=== PATIENT | female | born 1975 | race Two or more races ===

== ENCOUNTER 2019-09-15 13:37 | Emergency (ER) | payer BC, MEDICAID ==
[2019-09-15] MEDS ORDERED: MECLIZINE HCL 25 MG TABLET PO ONE (14:45)
[2019-09-15] MEDS ORDERED: ONDANSETRON HCL INJ/PF 4 MG/2 ML SDV IV ONE (14:45)
[2019-09-15] MEDS ORDERED: NORMAL SALINE 1000 ML 1,000 ML IV ONE (14:45)
--- NOTE | 2019-09-15 14:49 | ER Document Report ---
ED General - General Chief Complaint: Vertigo Stated Complaint: LIGHTHEADED,NAUSEA,SKIN SORE Time Seen by Provider: 09/15/19 14:28 Mode of Arrival: Ambulatory Information source: Patient Notes: Patient presents for a check of the hand which she has had for the past 5 days. Patient also reports vertigo symptoms which she has had in the past. Patient reports room is spinning that started off and on since yesterday with some nausea. Patient denies any vomiting, chest pain or shortness of breath. - HPI Onset: Yesterday - Vertigo Onset/Duration: Waxing and waning Quality of pain: No pain Associated symptoms: Nausea. denies: Chest pain, Nonproductive cough, Productive cough, Fever, Headache, Vomiting, Shortness of breath Exacerbated by: Denies Relieved by: Denies Similar symptoms previously: Yes Recently seen / treated by doctor: No - Related Data Allergies/Adverse Reactions: Penicillins Allergy (Verified 09/15/19 14:33) Past Medical History - General Information source: Patient - Social History Smoking Status: Current Every Day Smoker Frequency of alcohol use: None Drug Abuse: None Occupation: None Lives with: Family Family History: Reviewed & Not Pertinent Patient has homicidal ideation: No Neurological Medical History: Reports: Other - Vertigo Endocrine Medical History: Reports: Hx Diabetes Mellitus Type 2 Psychiatric Medical History: Reports: Hx Depression - anxiety/ptsd/panic attacks Past Surgical History: Reports: Hx Cholecystectomy, Hx Hysterectomy Review of Systems - Review of Systems Constitutional: No symptoms reported. denies: Fever, Recent illness EENT: Nose congestion, Sinus pressure Cardiovascular: Dizziness. denies: Chest pain Respiratory: No symptoms reported. denies: Cough, Short of breath Gastrointestinal: Nausea. denies: Abdominal pain, Vomiting Genitourinary: No symptoms reported Female Genitourinary: No symptoms reported Musculoskeletal: No symptoms reported Skin: No symptoms reported Hematologic/Lymphatic: No symptoms reported Neurological/Psychological: No symptoms reported. denies: Confusion, Weakness, Headaches Physical Exam - Vital signs Vitals: Temp Pulse Resp BP Pulse Ox 98.1 F 92 18 123/70 94 09/15/19 13:47 09/15/19 13:47 09/15/19 13:47 09/15/19 13:47 09/15/19 13:47 - General General appearance: Appears well, Alert In distress: None - HEENT Head: Normocephalic, Atraumatic Eyes: Normal Conjunctiva: Normal Extraocular movements intact: Yes - Mild lateral nystagmus Pupils: PERRL Sinus: Normal Nasal: Clear rhinorrhea Mouth/Lips: Normal Mucous membranes: Normal Pharynx: Normal Neck: Normal, Supple. No: Lymphadenopathy, Meningismus - Respiratory Respiratory status: No respiratory distress Chest status: Nontender Breath sounds: Normal. No: Rales, Rhonchi, Stridor, Wheezing Chest palpation: Normal - Cardiovascular Rhythm: Regular Heart sounds: S1 appreciated, S2 appreciated Murmur: No - Back Back: Normal - Extremities General upper extremity: Normal inspection, Normal strength General lower extremity: Normal inspection, Normal strength - Neurological Neuro grossly intact: Yes Cognition: Normal Orientation: AAOx4 Viviane Coma Scale Eye Opening: Spontaneous [place] Coma Scale Verbal: Oriented [place] Coma Scale Motor: Obeys Commands [place] Coma Scale Total: 15 Speech: Normal Cranial nerves: Normal - Psychological Associated symptoms: Normal affect, Normal mood - Skin Skin Temperature: Warm Skin Moisture: Dry Skin Color: Normal Skin irregularity: other - Crusted healing wound to dorsal aspect of left fifth metacarpal, no surrounding erythema., No lymphangitis, patient with full range of motion to hand Irregularity with: negative: Swelling, Warmth Course - Re-evaluation Re-evalutation: 09/15/19 16:27 Patient reports feeling better at this time. Nausea is resolved. Patient without any chest pain or shortness of breath. Patient nontoxic in appearance. Patient without any acute neurologic deficits. Patient presents with symptoms consistent with vertigo. Good return precautions discussed with patient. Patient verbalized understanding and is agreeable with discharge plan of care. - Vital Signs Vital signs: Temp Pulse Resp BP Pulse Ox 98.1 F 92 18 123/70 94 09/15/19 14:34 09/15/19 13:47 09/15/19 13:47 09/15/19 13:47 09/15/19 13:47 - Laboratory Result Diagrams: 09/15/19 15:15 09/15/19 15:15 Laboratory results interpreted by me: 09/15/19 09/15/19 15:15 15:15 Hgb 11.9 L Hct 34.6 L Sodium 136.3 L Anion Gap 4 L BUN 25 H Est GFR ( Amer) 57 L Est GFR (MDRD) Non-Af 47 L Glucose 219 H - EKG Interpretation by Me EKG shows normal: Sinus rhythm Heart block present: 1st Degree When compared to previous EKG there are: Previous EKG unavailable Additional EKG results interpreted by me: 09/15/19 16:28 QTc 436, no acute ischemic changes Discharge - Discharge Clinical Impression: Vertigo, Nausea Open wound, hand Qualifiers: Encounter type: initial encounter Open wound type: unspecified Foreign body presence: without foreign body Laterality: left Qualified Code(s): S61.402A - Unspecified open wound of left hand, initial encounter Condition: Stable Disposition: HOME, SELF-CARE Instructions: Antinausea Medication ([facility]), Bactroban Ointment ([facility]), Meclizine ([facility]), Vertigo ([facility]) Additional Instructions: Return immediately for any new or worsening symptoms Followup with your primary care provider, call tomorrow to make a followup appointment Keep wound covered as it continues to heal Prescriptions: Meclizine HCl [Antivert 25 mg Tablet] 25 mg PO ASDIR PRN #15 tablet PRN Reason: Mupirocin [Bactroban 2% Ointment 22 gm] 1 applic TP TID #22 gm Ondansetron [Zofran Odt 4 mg Tablet] 1 tab PO Q6H #15 tab.[email or web address]
[2019-09-15 15:30] LABS: ABSOLUTE EOSINOPHILS # (AUTO) 0.2 10^3/uL (0.0-0.6); ABSOLUTE LYMPHOCYTES (AUTO) 1.7 10^3/uL (0.5-4.7); ABSOLUTE MONOCYTES (AUTO) 0.4 10^3/uL (0.1-1.4); ABSOLUTE NEUT (AUTO) 3.4 10^3/uL (1.7-8.2); BASOPHILS % (AUTO) 0.5 % (0-2); EOSINOPHILS % (AUTO) 2.7 % (0-6); HEMATOCRIT 34.6 % (36.0-47.0); HEMOGLOBIN 11.9 g/dL (12.0-15.5); LYMPHOCYTES % (AUTO) 29.5 % (13-45); MEAN CORPUSCULAR HEMOGLOBIN 30.6 pg (27.0-33.4); MEAN CORPUSCULAR HGB CONC 34.4 g/dL (32.0-36.0); MEAN CORPUSCULAR VOLUME 89 fl (80-97); MONOCYTES % (AUTO) 7.8 % (3-13); PLATELET COUNT 212 10^3/uL (150-450); RED BLOOD COUNT 3.89 10^6/uL (3.72-5.28); RED CELL DISTRIBUTION WIDTH 13.8 % (11.5-14.0); SEGMENTED NEUTROPHILS % (AUTO) 59.5 % (42-78); TOTAL CELLS COUNTED % (AUTO) 100 %; WHITE BLOOD COUNT 5.7 10^3/uL (4.0-10.5)
[2019-09-15 15:56] LABS: ALBUMIN 3.6 g/dL (3.5-5.0); ALKALINE PHOSPHATASE 90 U/L (38-126); ASPARTATE AMINO TRANSFERASE 23 U/L (14-36); BILIRUBIN,DIRECT 0.1 mg/dL (0.0-0.4); BILIRUBIN,TOTAL 0.3 mg/dL (0.2-1.3); BLOOD UREA NITROGEN 25 mg/dL (7-20); CALCIUM 9.1 mg/dL (8.4-10.2); CARBON DIOXIDE 30 mmol/L (22-30); CHLORIDE 102 mmol/L (98-107); GLUCOSE 219 mg/dL (75-110); POTASSIUM 4.5 mmol/L (3.6-5.0); TOTAL PROTEIN 6.5 g/dL (6.3-8.2)
[2019-09-15 16:12] LABS: ANION GAP 4 (5-19)
[2019-09-15 16:44] VITALS: BP 113/75
--- NOTE | 2019-09-15 21:50 | EKG REPORT ---
SEVERITY:- ABNORMAL ECG - SINUS RHYTHM FIRST DEGREE AV BLOCK : Confirmed by: Shalom Ponce MD 15-Sep-2019 21:49:55
== END 2019-09-15 16:48 | disposition home or self-care (01) ==
LOC: ER 13:37
DX: R42 Dizziness and giddiness (principal); H55.00 Unspecified nystagmus; S61.402A Unspecified open wound of left hand, initial encounter; X58.XXXA Exposure to other specified factors, initial encounter; R11.0 Nausea; R09.81 Nasal congestion; J34.89 Other specified disorders of nose and nasal sinuses; E11.9 Type 2 diabetes mellitus without complications; F17.200 Nicotine dependence, unspecified, uncomplicated; Z88.0 Allergy status to penicillin
CPT/HCPCS: 93005; 99284; 96361; 96374; 36415; 85025; 80053; 93010; J2405; J7030

== ENCOUNTER → 2019-10-12 | Outpatient (CLI) | payer MEDICAID ==
[2019-10-12 09:31] LABS: HEMOGLOBIN 11.6 g/dL (12.0-15.5); MEAN CORPUSCULAR HEMOGLOBIN 30.3 pg (27.0-33.4); MEAN CORPUSCULAR HGB CONC 34.2 g/dL (32.0-36.0); MEAN CORPUSCULAR VOLUME 89 fl (80-97); PLATELET COUNT 266 10^3/uL (150-450); RED BLOOD COUNT 3.84 10^6/uL (3.72-5.28); RED CELL DISTRIBUTION WIDTH 13.9 % (11.5-14.0); WHITE BLOOD COUNT 5.6 10^3/uL (4.0-10.5)
[2019-10-12 09:53] LABS: IRON(TIBC) 53.4 ug/dL (37-170)
== END ==
LOC: OD 08:28
PROVIDERS: ATTEND Family Medicine
DX: D64.9 Anemia, unspecified (principal)
CPT/HCPCS: 36415; 82728; 83540; 83550; 85027

== ENCOUNTER 2020-02-14 21:09 | Emergency (ER) | payer MEDICAID ==
[2020-02-14 21:22] VITALS: BP 148/76
== END 2020-02-14 23:33 | disposition left against medical advice (07) ==
LOC: ER 21:09
DX: Z53.21 Procedure and treatment not carried out due to patient leaving prior to being seen by health care provider (principal)

== ENCOUNTER 2020-02-15 16:17 | Emergency (ER) | payer MEDICAID ==
--- NOTE | 2020-02-15 17:37 | ER Document Report ---
ED Medical Screen (RME) - General Chief Complaint: Puncture Wound to Foot Stated Complaint: FOOT WOUND Time Seen by Provider: 02/15/20 17:25 Primary Care Provider: DARRICK PEREIRA DO [Primary Care Provider] - Follow up as needed - [facility] Notes: Patient is a 44-year-old female with a history of diabetes, CVA x2, and HTN who presents with bilateral lower leg swelling and a wound to her left great toe. Patient was seen at urgent care earlier today and was told to come the ED for concerns of uncontrolled diabetes and cellulitis of her great toe. Patient reports midepigastric pain but denies chest pain and shortness of breath. - Related Data Allergies/Adverse Reactions: Penicillins Allergy (Verified 09/15/19 14:33) Past Medical History - Social History Frequency of alcohol use: None Drug Abuse: None Endocrine Medical History: Reports: Hx Diabetes Mellitus Type 2 Psychiatric Medical History: Reports: Hx Depression - anxiety/ptsd/panic attacks Past Surgical History: Reports: Hx Cholecystectomy, Hx Hysterectomy Physical Exam - Vital signs Vitals: Temp Pulse Resp BP Pulse Ox 98.2 F 76 20 139/78 H 95 02/15/20 16:35 02/15/20 16:35 02/15/20 16:35 02/15/20 16:35 02/15/20 16:35 - Extremities General lower extremity: Edema - pitting bilaterally Foot: Other - necrotic appearing wound to base on left great toe on the plantar surface Course - Re-evaluation Re-evalutation: I have greeted and performed a rapid initial assessment of this patient. A comprehensive ED assessment and evaluation of the patient, analysis of test results and completion of medical decision making process will be conducted by an additional ED providers. - Vital Signs Vital signs: Temp Pulse Resp BP Pulse Ox 98.2 F 76 20 139/78 H 95 02/15/20 16:35 02/15/20 16:35 02/15/20 16:35 02/15/20 16:35 02/15/20 16:35 Doctor's Discharge - Discharge Referrals: DARRICK PEREIRA DO [Primary Care Provider] - Follow up as needed
--- NOTE | 2020-02-15 17:54 | RADIOLOGY REPORT (SQ) ---
EXAM DESCRIPTION: CHEST SINGLE VIEW IMAGES COMPLETED DATE/TIME: 02/15/2020 5:43 pm REASON FOR STUDY: midepigastric pain, leg swelling COMPARISON: None. EXAM PARAMETERS: NUMBER OF VIEWS: One view. TECHNIQUE: Single frontal radiographic view of the chest acquired. RADIATION DOSE: NA LIMITATIONS: None. FINDINGS: LUNGS AND PLEURA: No opacities, masses or pneumothorax. No pleural effusion. MEDIASTINUM AND HILAR STRUCTURES: No masses. Contour normal. HEART AND VASCULAR STRUCTURES: Heart normal in size. Normal vasculature. BONES: No acute findings. HARDWARE: None in the chest. OTHER: No other significant finding. IMPRESSION: NO ACUTE RADIOGRAPHIC FINDING IN THE CHEST. TECHNICAL DOCUMENTATION: JOB ID: [id number] 2010 [employer]- All Rights Reserved Reading location - IP/workstation name: [email or web address]
[2020-02-15 18:03] LABS: ABSOLUTE EOSINOPHILS # (AUTO) 0.2 10^3/uL (0.0-0.6); ABSOLUTE LYMPHOCYTES (AUTO) 1.7 10^3/uL (0.5-4.7); ABSOLUTE MONOCYTES (AUTO) 0.5 10^3/uL (0.1-1.4); ABSOLUTE NEUT (AUTO) 4.1 10^3/uL (1.7-8.2); BASOPHILS % (AUTO) 0.3 % (0-2); HEMOGLOBIN 11.7 g/dL (12.0-15.5); LYMPHOCYTES % (AUTO) 26.3 % (13-45); MEAN CORPUSCULAR HEMOGLOBIN 30.8 pg (27.0-33.4); MEAN CORPUSCULAR HGB CONC 34.5 g/dL (32.0-36.0); MEAN CORPUSCULAR VOLUME 89 fl (80-97); MONOCYTES % (AUTO) 8.2 % (3-13); PLATELET COUNT 209 10^3/uL (150-450); RED BLOOD COUNT 3.82 10^6/uL (3.72-5.28); RED CELL DISTRIBUTION WIDTH 14.4 % (11.5-14.0); SEGMENTED NEUTROPHILS % (AUTO) 62.2 % (42-78); TOTAL CELLS COUNTED % (AUTO) 100 %; WHITE BLOOD COUNT 6.6 10^3/uL (4.0-10.5)
[2020-02-15 18:29] LABS: ALBUMIN 3.6 g/dL (3.5-5.0); ALKALINE PHOSPHATASE 89 U/L (38-126); ANION GAP 6 (5-19); ASPARTATE AMINO TRANSFERASE 15 U/L (14-36); BILIRUBIN,DIRECT 0.2 mg/dL (0.0-0.4); BILIRUBIN,TOTAL 0.3 mg/dL (0.2-1.3); BLOOD UREA NITROGEN 19 mg/dL (7-20); CALCIUM 9.5 mg/dL (8.4-10.2); CARBON DIOXIDE 30 mmol/L (22-30); CHLORIDE 101 mmol/L (98-107); GLUCOSE 285 mg/dL (75-110); POTASSIUM 4.3 mmol/L (3.6-5.0); TOTAL PROTEIN 6.9 g/dL (6.3-8.2)
[2020-02-15 18:41] LABS: NT PRO BNP 353 pg/mL (<125)
[2020-02-15 18:44] LABS: TROPONIN I < 0.012 ng/mL
--- NOTE | 2020-02-15 19:13 | EKG REPORT ---
SEVERITY:- ABNORMAL ECG - SINUS RHYTHM FIRST DEGREE AV BLOCK : Confirmed by: Marcella Norman MD 15-Feb-2020 19:13:00
--- NOTE | 2020-02-15 21:33 | ER Document Report ---
ED General - General Chief Complaint: Wound Infection Stated Complaint: FOOT WOUND Time Seen by Provider: 02/15/20 17:25 Primary Care Provider: DARRICK PEREIRA DO [Primary Care Provider] - Follow up as needed - HPI Notes: 44-year-old female presents with an ulcer to her left toe. Patient states she is unsure how long the ulcer has been there for, states she just noticed it today. She is unsure of any injury that might have occurred. She states that she went to urgent care and was called to come to the emergency department for further evaluation. She states that she had a corn to the same toe which her primary care doctor shaved, she states this was fairly recent and he did not mention anything about an ulcer. She is having some pain to the toe and it radiates up her entire leg and into her groin. She also states that her legs have been swelling, her primary care doctor started her on Lasix for this, she denies a previous history of CHF and has not had an echo. She denies any previous history of blood clots and she is otherwise active during the day. The triage note also mentions epigastric pain, she states she has been having epigastric pain and some nausea ongoing for several months. She has tried Pepto-Bismol and Imodium for the symptoms which have not really changed, she do es not take any antacid medications. - Related Data Allergies/Adverse Reactions: Penicillins Allergy (Verified 09/15/19 14:33) Past Medical History - General Information source: Patient - Social History Smoking Status: Current Every Day Smoker Frequency of alcohol use: None Drug Abuse: None Family History: Reviewed & Not Pertinent Patient has homicidal ideation: No Endocrine Medical History: Reports: Hx Diabetes Mellitus Type 2 Psychiatric Medical History: Reports: Hx Depression - anxiety/ptsd/panic attacks Past Surgical History: Reports: Hx Cholecystectomy, Hx Hysterectomy Review of Systems - Review of Systems Constitutional: denies: Fever EENT: No symptoms reported Cardiovascular: denies: Chest pain Respiratory: denies: Short of breath Gastrointestinal: See HPI Genitourinary: No symptoms reported Female Genitourinary: No symptoms reported Musculoskeletal: See HPI Skin: Dryness Hematologic/Lymphatic: No symptoms reported Neurological/Psychological: No symptoms reported Physical Exam - Vital signs Vitals: Temp Pulse Resp BP Pulse Ox 98.2 F 76 20 139/78 H 95 02/15/20 16:35 02/15/20 16:35 02/15/20 16:35 02/15/20 16:35 02/15/20 16:35 - General General appearance: Appears well, Alert In distress: None - HEENT Head: Normocephalic, Atraumatic Extraocular movements intact: Yes Pupils: PERRL - Respiratory Breath sounds: Normal - Cardiovascular Rhythm: Regular Heart sounds: Normal auscultation Pulses: Normal: Dorsalis pedis Normal capillary refill: Yes - Abdominal Inspection: Obese Bowel sounds: Normal Tenderness: Nontender - Extremities Notes: There is ulceration to the plantar aspect of the left great toe, about 1 cm in depth, there is no bone visible. There is no purulence, crepitance or streaking erythema. There is bilateral edema to her lower extremities, 1+ pitting. She has tenderness to the left calf which appears slightly larger than the right. - Neurological Neuro grossly intact: Yes Cognition: Normal Orientation: AAOx4 Motor strength normal: LUE, RUE, LLE, RLE Sensory: Normal - Psychological Associated symptoms: Normal affect - Skin Skin Temperature: Warm Course - Re-evaluation Re-evalutation: 44-year-old female with ulceration to the plantar aspect of left great toe, patient unsure of cause or duration. On exam there is an ulceration without purulence/erythema. She does have some hyperkeratosis to the left great toe as well. Left foot is warm and well perfused, it is otherwise neurovascularly intact. She does have bilateral 1+ edema to her lower extremities as well for which she is taking Lasix for this. She denies cardiopulmonary complaints. Given that the cause of the ulcer is unknown, will obtain x-ray to assess for any foreign body that may be present. Also obtain ultrasound to rule out DVT. Will start on empiric Bactrim given that she is a diabetic and is at high risk for this wound to progress, she states that she does have a primary care doctor and believes she will be able to have close follow-up this week. In terms of her epigastric pain and nausea, discussed with her potentially is related to reflux and have advised to start daily acid suppressive medication, her abdomen is nontender. Through the triage process she had labs, EKG and chest x-ray done. No leukocytosis or left shift, chronic anemia stable. Electrolytes within normal limits. Creatinine within normal limits. Hyperglycemia however normal bicarb and no anion gap. Troponin is negative. There is a slight elevation of BNP, no previous values available for comparison. EKG is nonischemic and chest x-ray is without consolidation. 02/15/20 23:08 X-ray foot available, no foreign body, there is air out the wound but no surrounding soft tissue air, no evidence of osteomyelitis per radiology 02/15/20 23:15 No DVT per radiology 02/15/20 23:20 Patient was updated on work-up. Advised her to have very close follow-up with her primary care doctor and asked for referral to podiatry or even orthopedic surgery. Also discussed with her potentially doubling Lasix for the next few days to see if this has any effect. Return precautions given, stable at time of discharge. - Vital Signs Vital signs: Temp Pulse Resp BP Pulse Ox 98.2 F 82 18 142/81 H 97 02/15/20 16:35 02/15/20 19:51 02/15/20 19:51 02/15/20 19:51 02/15/20 19:51 - Laboratory Results Result Diagrams: 02/15/20 17:44 02/15/20 17:44 Laboratory Results Interpreted: 02/15/20 02/15/20 02/15/20 17:44 17:44 17:44 Hgb 11.7 L Hct 34.0 L RDW 14.4 H Glucose 285 H NT-Pro-B Natriuret Pep 353 H Critical Laboratory Results Reviewed: No Critical Results - Radiology Results Critical Radiology Results Reviewed: No Critical Results Discharge - Discharge Clinical Impression: Chronic anemia, Edema of both lower extremities Ulcer of toe due to diabetes Qualifiers: Diabetes mellitus type: type 2 Laterality: left Non-pressure ulcer stage: limited to breakdown of skin Qualified Code(s): E11.621 - Type 2 diabetes mellitus with foot ulcer; L97.521 - Non-pressure chronic ulcer of other part of left foot limited to breakdown of skin Hyperglycemia due to type 2 diabetes mellitus Qualifiers: 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 As discussed, you need to have very close follow-up with your primary care doctor, you need to be seen this week. Ask for referral to podiatry or orthopedic surgery, also discuss obtaining echo to evaluate for any signs of CHF. Return to the emergency department for any concerning worsening symptoms. Prescriptions: Sulfamethoxazole/Trimethoprim [Bactrim Ds Tablet] 2 tab PO BID #28 tablet Referrals: DARRICK PEREIRA DO [Primary Care Provider] - Follow up as needed
[2020-02-15] MEDS ORDERED: SULFAMETHOXAZOLE/TRIMETHOPRIM 800-160 MG TABLET PO ONE (21:48)
--- NOTE | 2020-02-15 23:07 | RADIOLOGY REPORT (SQ) ---
EXAM DESCRIPTION: FOOT LEFT 2 VIEWS [facility]: XR FOOT 1-2 VIEWS Views: 2 CLINICAL HISTORY: 44 years Female; wound base of great toe, eval FB or gas; COMPARISON: None. FINDINGS: Negative for acute fracture, dislocation, or radiopaque foreign body. There is soft tissue air plantar and medial to the 1st IP joint, with associated soft tissue swelling. No lytic bone changes. Small plantar and Achilles calcaneal spurs are noted. IMPRESSION: 1. Soft tissue wound of the great toe. There is air at the wound, but no significant surrounding soft tissue air. 2. No radiographic evidence for osteomyelitis.
--- NOTE | 2020-02-15 23:10 | RADIOLOGY REPORT (SQ) ---
EXAM DESCRIPTION: VENOUS UNILATERAL LOWER 02/15/2020 9:45 PM [employer] CLINICAL HISTORY: 44 years Female, L leg swelling, eval DVT; ; COMPARISON: None. FINDINGS: Left common femoral, femoral, popliteal, posterior tibial, greater saphenous, and small saphenous veins demonstrate normal compressibility and phasicity. The right common femoral vein also appears normal. Superficial soft tissues show soft tissue swelling about the left lower leg. As a result, the left peroneal vein was not visualized. IMPRESSION: No definitive evidence of deep venous thrombosis within the left lower extremity. Soft tissue swelling.
[2020-02-15 23:34] VITALS: BP 150/76
== END 2020-02-15 23:34 | disposition home or self-care (01) ==
LOC: ER 16:17
DX: D64.89 Other specified anemias (principal); R60.9 Edema, unspecified; E11.621 Type 2 diabetes mellitus with foot ulcer; L97.521 Non-pressure chronic ulcer of other part of left foot limited to breakdown of skin; E11.65 Type 2 diabetes mellitus with hyperglycemia; F17.200 Nicotine dependence, unspecified, uncomplicated; Z90.49 Acquired absence of other specified parts of digestive tract; Z90.710 Acquired absence of both cervix and uterus
CPT/HCPCS: 93005; 99285; 36415; 83690; 85025; 80053; 84484; 83880; 93971; 71045; 73620; 93010; J3490

== ENCOUNTER 2020-02-18 16:31 | Emergency (ER) | payer MEDICAID ==
[2020-02-18 16:39] VITALS: BP 147/72
== END 2020-02-18 17:06 | disposition left against medical advice (07) ==
LOC: ER 16:31
DX: Z53.21 Procedure and treatment not carried out due to patient leaving prior to being seen by health care provider (principal)

== ENCOUNTER 2020-02-18 23:46 | Inpatient (IN) | payer MEDICAID ==
[2020-02-19] MEDS ORDERED: VANCOMYCIN HCL INJ 1000 MG VIAL IV ONE (01:24)
--- NOTE | 2020-02-19 01:25 | ER Document Report ---
ED Medical Screen (RME) - General Stated Complaint: LEFT FOOT DIABETIC ULCER Time Seen by Provider: 02/19/20 01:17 Primary Care Provider: DARRICK PEREIRA DO [Primary Care Provider] - Follow up as needed Notes: Patient is a 44-year-old female who presents to the emergency department with a chief complaint of left foot/great toe pain. Patient noticed that she was having increased pain on Saturday. Patient was referred to podiatry, which they r ecommended IV antibiotics. Patient was here yesterday in the emergency department, but left due to the wait and the amount of people that were in the emergency department. Family reports that the patient always has chills. Denies any fevers that they know of. Exam: Tenderness noted to left foot, especially at left great toe. Erythema noted to left lower extremity. I have greeted and performed a rapid initial assessment of this patient. A comprehensive ED assessment and evaluation of the patient, analysis of test results and completion of medical decision making process will be conducted by an additional ED providers. - Related Data Allergies/Adverse Reactions: Penicillins Allergy (Verified 09/15/19 14:33) steroids Allergy (Uncoded 02/19/20 01:21) Past Medical History Endocrine Medical History: Reports: Hx Diabetes Mellitus Type 2 Psychiatric Medical History: Reports: Hx Depression - anxiety/ptsd/panic attacks Past Surgical History: Reports: Hx Cholecystectomy, Hx Hysterectomy Physical Exam - Vital signs Vitals: Temp Pulse Resp BP Pulse Ox 97.9 F 85 18 96/60 L 94 02/19/20 00:52 02/19/20 00:52 02/19/20 00:52 02/19/20 00:52 02/19/20 00:52 Course - Vital Signs Vital signs: Temp Pulse Resp BP Pulse Ox 97.9 F 85 18 96/60 L 94 02/19/20 00:52 02/19/20 00:52 02/19/20 00:52 02/19/20 00:52 02/19/20 00:52 Doctor's Discharge - Discharge Referrals: DARRICK PEREIRA DO [Primary Care Provider] - Follow up as needed
[2020-02-19 02:18] LABS: ABSOLUTE EOSINOPHILS # (AUTO) 0.2 10^3/uL (0.0-0.6); ABSOLUTE LYMPHOCYTES (AUTO) 1.6 10^3/uL (0.5-4.7); ABSOLUTE MONOCYTES (AUTO) 0.6 10^3/uL (0.1-1.4); ABSOLUTE NEUT (AUTO) 3.6 10^3/uL (1.7-8.2); BASOPHILS % (AUTO) 0.5 % (0-2); EOSINOPHILS % (AUTO) 3.6 % (0-6); HEMATOCRIT 34.8 % (36.0-47.0); HEMOGLOBIN 11.8 g/dL (12.0-15.5); LYMPHOCYTES % (AUTO) 26.5 % (13-45); MEAN CORPUSCULAR HEMOGLOBIN 29.9 pg (27.0-33.4); MEAN CORPUSCULAR VOLUME 88 fl (80-97); MONOCYTES % (AUTO) 9.2 % (3-13); PLATELET COUNT 250 10^3/uL (150-450); RED BLOOD COUNT 3.96 10^6/uL (3.72-5.28); RED CELL DISTRIBUTION WIDTH 14.4 % (11.5-14.0); SEGMENTED NEUTROPHILS % (AUTO) 60.2 % (42-78); TOTAL CELLS COUNTED % (AUTO) 100 %
[2020-02-19 02:41] LABS: ALBUMIN 3.5 g/dL (3.5-5.0); ALKALINE PHOSPHATASE 86 U/L (38-126); ANION GAP 7 (5-19); ASPARTATE AMINO TRANSFERASE 15 U/L (14-36); BILIRUBIN,DIRECT 0.2 mg/dL (0.0-0.4); BILIRUBIN,TOTAL 0.4 mg/dL (0.2-1.3); BLOOD UREA NITROGEN 25 mg/dL (7-20); CALCIUM 9.5 mg/dL (8.4-10.2); CARBON DIOXIDE 33 mmol/L (22-30); CHLORIDE 102 mmol/L (98-107); GLUCOSE 118 mg/dL (75-110); POTASSIUM 4.6 mmol/L (3.6-5.0); TOTAL PROTEIN 6.6 g/dL (6.3-8.2)
--- NOTE | 2020-02-19 02:45 | RADIOLOGY REPORT (SQ) ---
Left foot x-ray three views on 02/19/2020 at 2:12 AM Clinical indications: Diabetic ulcer plantar aspect of first toe COMPARISON: 02/15/2020 FINDINGS: Soft tissue wound is noted in the plantar aspect of the distal first toe similar to the previous exam. There is no radiopaque foreign body. A tiny plantar calcaneal spur is noted. There are no fractures. Visualized joints are well aligned. No definite plain radiographic evidence of osteomyelitis is noted. IMPRESSION: No acute bony abnormality.
[2020-02-19] MEDS ORDERED: HYDROCODONE/ACETAMINOPHEN 5-325 MG TABLET PO ONE (04:00)
[2020-02-19] MEDS ORDERED: CLINDAMYCIN 300 MG/D5W RTU 300 MG/50 ML RTUPB IV ONE (04:00)
--- NOTE | 2020-02-19 04:39 | ER Document Report ---
ED General - General Chief Complaint: Skin Sore(s) Stated Complaint: LEFT FOOT DIABETIC ULCER Time Seen by Provider: 02/19/20 01:17 Primary Care Provider: DARRICK PEREIRA DO [Primary Care Provider] - Follow up as needed Notes: Patient is a 44-year-old female with a history of diabetes who presents emergency department with a diabetic foot ulcer to her left great toe. In mid January, she saw the barrel raiser helper, Dr. Maria. She ended up having a callus on her foot prescription. Since then, the area has not healed well. Patient has been on Bactrim for the past few days. Family states that she has chills all the time. Denies any actual fever that they know of. - Related Data Allergies/Adverse Reactions: Penicillins Allergy (Verified 09/15/19 14:33) steroids Allergy (Uncoded 02/19/20 01:21) Past Medical History - Social History Smoking Status: Never Smoker Family History: Reviewed & Not Pertinent Endocrine Medical History: Reports: Hx Diabetes Mellitus Type 2 Psychiatric Medical History: Reports: Hx Depression - anxiety/ptsd/panic attacks Past Surgical History: Reports: Hx Cholecystectomy, Hx Hysterectomy Review of Systems - Review of Systems Notes: REVIEW OF SYSTEMS: CONSTITUTIONAL : Denies recent illness. Denies recent unintentional weight loss. See HPI. EENT: Denies eye, ear, throat, or mouth pain, discharge, or symptoms. Denies nasal or sinus congestion. CARDIOVASCULAR: Denies chest pain. RESPIRATORY: Denies shortness of breath, cough, congestion, difficulty breathing, or wheezing. GASTROINTESTINAL: Denies nausea, vomiting, and diarrhea. Denies abdominal pain. Denies constipation. GENITOURINARY: Denies difficulty urinating, burning, blood in urine, urgency or frequency. MUSCULOSKELETAL: Denies neck and back pain. See HPI. SKIN: See HPI. HEMATOLOGIC : Denies easy bruising or bleeding. LYMPHATIC: Denies swollen, painful, enlarged glands. NEUROLOGICAL: Denies no numbness or tingling denies weakness. Denies headache. Denies altered mental status. Denies alteration in speech. PSYCHIATRIC: Denies stress, anxiety, alteration in sleep patterns, or depression. All other systems reviewed and negative. Physical Exam - Vital signs Vitals: Temp Pulse Resp BP Pulse Ox 97.9 F 85 18 96/60 L 94 02/19/20 00:52 02/19/20 00:52 02/19/20 00:52 02/19/20 00:52 02/19/20 00:52 - Notes Notes: PHYSICAL EXAMINATION: GENERAL: Appears well, healthy, well-nourished, no acute distress. HEAD: Normocephalic, atraumatic. EYES: PERRL, conjunctiva normal, all extraocular movements intact, sclera nonicteric ENT: Moist mucous membranes. NECK: Supple, no noticeable swelling, redness, rash. Normal range of motion. LUNGS: Equal breath sounds bilaterally and clear to auscultation. No wheezes rales or rhonchi. CARDIOVASCULAR: S1-S2, regular rate, regular rhythm. Radial pulses 2+, normal. ABDOMEN: Normoactive bowel sounds. Soft, nontender, no guarding, no rebound tenderness, and no masses palpated. EXTREMITIES: Normal strength and range of motion, no pitting or edema. No cyanosis. NEUROLOGICAL: Moves all extremities upon command. Strength 5/5 in all extremities. PSYCH: Normal mood, normal affect. SKIN: Warm, dry. Erythema noted to left lower extremity. Diabetic toe ulcer noted to plantar section of left great toe. Course - Re-evaluation Re-evalutation: 02/19/20 04:42 Hematology is unremarkable. Chemistries are also unremarkable. Lactic acid is negative. LFTs are normal. Foot x-ray does not show osteomyelitis. Patient still does have some cellulitis. I gave her some clindamycin. Due to the patient failing outpatient therapy, will call the hospitalist for admission. Spoke with Dr. Zapata. He will evaluate the patient. 02/19/20 06:27 Dr. Zapata has evaluated patient. Patient will be admitted to hospitalist service. - Vital Signs Vital signs: Temp Pulse Resp BP Pulse Ox 97.9 F 85 18 129/60 H 94 02/19/20 00:52 02/19/20 00:52 02/19/20 00:52 02/19/20 05:03 02/19/20 00:52 - Laboratory Results Result Diagrams: 02/19/20 01:59 02/19/20 01:59 Laboratory Results Interpreted: 02/19/20 02/19/20 01:59 01:59 Hgb 11.8 L Hct 34.8 L RDW 14.4 H Carbon Dioxide 33 H BUN 25 H Est GFR (MDRD) Non-Af 56 L Glucose 118 H Critical Laboratory Results Reviewed: No Critical Results - Radiology Results Critical Radiology Results Reviewed: No Critical Results Discharge - Discharge Clinical Impression: Edema of both lower extremities Ulcer of toe due to diabetes Qualifiers: Diabetes mellitus type: type 2 Laterality: left Non-pressure ulcer stage: with other severity Qualified Code(s): E11.621 - Type 2 diabetes mellitus with foot ulcer; L97.528 - Non-pressure chronic ulcer of other part of left foot with other specified severity Cellulitis Qualifiers: Site of cellulitis: extremity Site of cellulitis of extremity: lower extremity Laterality: left Qualified Code(s): L03.116 - Cellulitis of left lower limb Condition: Stable Disposition: ADMITTED INPATIENT Admitting Provider: Jodi Unit Admitted: Medical Floor Referrals: DARRICK PEREIRA DO [Primary Care Provider] - Follow up as needed
[2020-02-19] MEDS ORDERED: ONDANSETRON HCL INJ/PF 4 MG/2 ML SDV IV PRN (06:27)
[2020-02-19] MEDS ORDERED: ACETAMINOPHEN 325 MG TABLET PO PRN (06:27)
[2020-02-19] MEDS ORDERED: VANCOMYCIN HCL 0 MG in DEXTROSE 5%-WATER 250 ML IV NR (06:45)
--- NOTE | 2020-02-19 06:51 | PDOC H&P ---
History of Present Illness Admission Date/PCP: DARRICK PEREIRA DO Patient complains of: left lower extremity wound and ulcer History of Present Illness: MEAGAN FLORES is a 44 year old female with a history of type 2 diabetes, PTSD and depression who presents with duration of worsening of left big toe pain and wound. Patient reports that she was seen by liability analyst on 01/19 and corn was removed and she stated that it was painless at the time of procedure and in the period immediately following that. The past week she developed worsening pain and about a week ago she started having swelling and erythema surrounding the ulcer site. Was seen at the ED 4 days back for a similar reason and she was discharged on Bactrim. She states that she has been compliant with the medication but the wound and redness continued to get worse. She was evaluated by podiatry a day ago and recommended IV antibiotics and she was referred to the ED for further assessment. She denies any fever, chills, nausea, vomiting. Past Medical History Endocrine Medical History: Reports: Diabetes Mellitus Type 2 Psychiatric Medical History: Reports: Depression - anxiety/ptsd/panic attacks Past Surgical History Past Surgical History: Reports: Cholecystectomy, Hysterectomy Social History Information Source: Patient Lives with: Family Smoking Status: Current Every Day Smoker Hx Recreational Drug Use: No Drugs: None - Advance Directive Resuscitation Status: Full Code Family History Family History: Reviewed & Not Pertinent Parental Family History Reviewed: Yes Children Family History Reviewed: Yes Sibling(s) Family History Reviewed.: Yes Medication/Allergy Home Medications: Meclizine HCl [Antivert 25 mg Tablet] 25 mg PO ASDIR PRN #15 tablet 09/15/19 Mupirocin [Bactroban 2% Ointment 22 gm] 1 applic TP TID #22 gm 09/15/19 Ondansetron [Zofran Odt 4 mg Tablet] 1 tab PO Q6H #15 tab.rapdis 09/15/19 Sulfamethoxazole/Trimethoprim [Bactrim Ds Tablet] 2 tab PO BID #28 tablet 02/15/20 Allergies/Adverse Reactions: Penicillins Allergy (Verified 09/15/19 14:33) steroids Allergy (Uncoded 02/19/20 01:21) Review of Systems Constitutional: ABSENT: chills, fever(s), headache(s), weight gain, weight loss Eyes: ABSENT: visual disturbances Ears: ABSENT: hearing changes Cardiovascular: ABSENT: chest pain, dyspnea on exertion, edema, orthropnea, palpitations Respiratory: ABSENT: cough, hemoptysis Gastrointestinal: ABSENT: abdominal pain, constipation, diarrhea, hematemesis, hematochezia, nausea, vomiting Genitourinary: ABSENT: dysuria, hematuria Musculoskeletal: ABSENT: joint swelling Integumentary: PRESENT: as per HPI. ABSENT: rash Neurological: ABSENT: abnormal gait, abnormal speech, confusion, dizziness, focal weakness, syncope Psychiatric: ABSENT: anxiety, depression, homidical ideation, suicidal ideation Endocrine: ABSENT: cold intolerance, heat intolerance, polydipsia, polyuria Physical Exam Vital Signs: Temp Pulse Resp BP Pulse Ox 97.9 F 85 18 129/60 H 94 02/19/20 00:52 02/19/20 00:52 02/19/20 00:52 02/19/20 05:03 02/19/20 00:52 Intake & Output 02/17/20 02/18/20 02/19/20 06:59 06:59 06:59 Intake Total 50 Balance 50 Weight 147.418 kg Additional comments: GENERAL APPEARANCE: Alert and oriented x3, in no acute distress HEENT: Normocephalic and atraumatic. No scleral icterus. Moist oral mucosa NECK: Supple. No lymphadenopathy or tenderness. No carotid bruit. No JVD CHEST: Symmetric. Nontender to palpation. LUNGS: Clear with good air entry bilaterally. No wheezing or crackles HEART: Regular rate and rhythm with normal S1 and S2. No murmurs, gallops, or rubs. ABDOMEN: Flat, soft, active bowel sounds, no direct or rebound tenderness. No organomegaly detected. No CVA tenderness EXTREMITIES: There is 1 x 1 cm deep ulcer on the left foot at the plantar side of the big toe. There is surrounding erythema, swelling and differential warmth with associated tenderness. Dorsalis pedis pulses +2 bilaterally MUSCULOSKELETAL: No deformity, atrophy or swelling noted PSYCHIATRIC: Recent and remote memory is intact. Appropriate mood and affect. SKIN: Warm, dry, and well perfused. No lesions or rashes are noted. NEUROLOGIC: No focal sensory or motor deficits are noted. Results Laboratory Results: 02/19/20 01:59 02/19/20 01:59 02/19/20 02/19/20 02/19/20 01:59 01:59 01:59 WBC 6.0 RBC 3.96 Hgb 11.8 L Hct 34.8 L MCV 88 MCH 29.9 MCHC 34.0 RDW 14.4 H Plt Count 250 Seg Neutrophils % 60.2 Sodium 142.0 Potassium 4.6 Chloride 102 Carbon Dioxide 33 H Anion Gap 7 BUN 25 H Creatinine 1.05 Est GFR ( Amer) > 60 Glucose 118 H Lactic Acid 1.2 Calcium 9.5 Total Bilirubin 0.4 AST 15 Alkaline Phosphatase 86 Total Protein 6.6 Albumin 3.5 Impressions: Foot X-Ray 02/19/20 01:22 IMPRESSION: No acute bony abnormality. Assessment and Plan - Diagnosis (1) Ulcer of toe due to diabetes Qualifiers: Diabetes mellitus type: type 2 Laterality: left Non-pressure ulcer stage: with other severity Qualified Code(s): E11.621 - Type 2 diabetes mellitus with foot ulcer; L97.528 - Non-pressure chronic ulcer of other part of left foot with other specified severity Is this a current diagnosis for this admission?: Yes Plan: Presents with a nonhealing ulcer on the left big toe Failed outpatient treatment with Bactrim Has no signs of systemic toxicity WBC count within the normal limits X-ray showed no sign of bony involvement Obtain ESR and C-reactive protein Wound consult for possible debridement Consider obtaining MRI follow-up hospital Started on vancomycin and cefepime (2) Cellulitis Qualifiers: Site of cellulitis: extremity Site of cellulitis of extremity: lower extremity Laterality: left Qualified Code(s): L03.116 - Cellulitis of left lower limb Is this a current diagnosis for this admission?: Yes Plan: Presents with foot ulcer with surrounding erythema, swelling and tenderness Has no systemic signs of toxicity Failed outpatient treatment Continue vancomycin and cefepime Follow-up with blood culture Consider wound debridement (3) Hyperglycemia due to type 2 diabetes mellitus Qualifiers: Diabetes mellitus terminal gauger supervisor insulin use: without fci use Qualified Code(s): E11.65 - Type 2 diabetes mellitus with hyperglycemia Is this a current diagnosis for this admission?: Yes Plan: We will place her on insulin, with sliding scale, hypoglycemia protocol and Accu-Cheks (4) Depression Is this a current diagnosis for this admission?: Yes Plan: Currently denies any suicidal of homicidal ideation Continue home medication (5) PTSD (post-traumatic stress disorder) Is this a current diagnosis for this admission?: Yes Plan: Continue prazosin (6) Morbid obesity with BMI of 45.0-49.9, adult Is this a current diagnosis for this admission?: Yes Plan: Encourage regular exercise and dietary modification (7) Tobacco dependence Is this a current diagnosis for this admission?: Yes Plan: Currently patient smokes 1 pack/day Counseling provided to cut down or quit smoking provide nicotine patch while inpatient - Time Time Spent with patient: 35 or more minutes Total Critical Time (Minutes): 45 Smoking Cessation Education: 3 to 10 minutes Medications reviewed and adjusted accordingly: Yes Anticipated Discharge Disposition: Home, Self Care Anticipated Discharge Timeframe: within 48 hours - Inpatient Certification Based on my medical assessment, after consideration of the patient's jorge rbidities, presenting symptoms, or acuity I expect that the services needed warrant INPATIENT care.: Yes I certify that my determination is in accordance with my understanding of Medicare's requirements for reasonable and necessary INPATIENT services [42 CFR 412.3e].: Yes Medical Necessity: Failure to Improve With Outpatient Therapy, Need Close Monitoring Due to Risk of Patient Decompensation, Need for IV Antibiotics Post Hospital Care: D/C or Transfer Summary
[2020-02-19] MEDS ORDERED: CEFEPIME 2 GM/D5W RTU 2 GM/50 ML RTUPB IV SCH (07:00)
[2020-02-19] MEDS ORDERED: DEXTROSE 50%-WATER 25 GM/50 ML DISP.SYRIN IV PRN ×2 (08:25)
[2020-02-19] MEDS ORDERED: DEXTROSE 40% GEL 15 GM TUBE PO PRN ×2 (08:25)
[2020-02-19] MEDS ORDERED: GLUCAGON,HUMAN RECOMB 1 MG INJ IM PRN (08:25)
[2020-02-19] MEDS: OXYCODONE-ACETAMINOPHEN 5-325 MG TABLET PO PRN ×3 (08:58→22:52)
[2020-02-19] MEDS ORDERED: ENOXAPARIN SODIUM INJ 40 MG/0.4 ML DISP.SYRIN SUBCUT SCH (10:00)
[2020-02-19] MEDS: FAMOTIDINE 20 MG TABLET PO SCH ×2 (11:20→22:32)
[2020-02-19] MEDS: VANCOMYCIN HCL 1,500 MG in DEXTROSE 5%-WATER 250 ML IV SCH ×2 (11:20→22:31)
[2020-02-19] MEDS: INSULIN REG, HUMAN 100 UNIT/ML 3 ML VIAL (PYX) SUBCUT SCH ×3 (12:11→22:32)
[2020-02-19] MEDS ORDERED: LIDOCAINE 1% INJ (10 MG/ML) 10 ML MDV INJ PRN (13:15)
[2020-02-19] MEDS: NICOTINE 14 MG/24 HR PATCH.TD24 TD PRN (16:26)
[2020-02-19] MEDS: HUM INSULIN NPH/REG INSULIN HM 100 UNIT/1 ML 3 ML SUBCUT SCH (16:27)
--- NOTE | 2020-02-19 16:32 | PDOC CONSULTATION ---
Consultation Consult Date: 02/19/20 Attending physician:: NORA AMATO Provider Consulted: ADELFO ELKINS Consult reason:: Infected left great toe History of Present Illness Admission Date/PCP: 02/19/20 11:49 DARRICK PEREIRA DO History of Present Illness: MEAGAN FLORES is a 44 year old female Presents to the emergency department with a swollen, painful, draining left great toe. Patient has had the symptoms for over a month. She has been managed by a shipyard painter on an outpatient basis with oral antibiotics, debridement. Patient admitted for IV antibiotics, surgery consulted. X-ray of the foot revealed no gas or evidence of osteomyelitis. Patient is a diabetic, smoker, morbidly obese, and has an insensate foot. Past Medical History Past Medical History: Diabetes, hypertension, obesity, smoking abuse, depression Endocrine Medical History: Reports: Diabetes Mellitus Type 2 Psychiatric Medical History: Reports: Depression - anxiety/ptsd/panic attacks Past Surgical History Past Surgical History: Reports: Cholecystectomy, Hysterectomy Social History Information Source: Patient Lives with: Family Smoking Status: Current Every Day Smoker Hx Recreational Drug Use: No Drugs: None - Advance Directive Resuscitation Status: Full Code Family History Family History: None, Reviewed & Not Pertinent Parental Family History Reviewed: No Children Family History Reviewed: No Sibling(s) Family History Reviewed.: No Medication/Allergy Home Medications: Baclofen [Baclofen 10 mg Tablet] 5 mg PO BID 02/19/20 Buspirone HCl 30 mg PO BID 02/19/20 Diphenhydramine HCl [Allergy Relief] 50 mg PO DAILYP PRN 02/19/20 Divalproex Sodium [Depakote ER 500 mg Tab.sr] 1,500 mg PO QHS 02/19/20 Donepezil HCl 10 mg PO BID 02/19/20 Doxepin HCl [Sinequan 25 Mg Capsule] 100 mg PO QHS 02/19/20 Furosemide [Lasix 40 mg Tablet] 40 mg PO DAILY 02/19/20 Gabapentin [Neurontin 400 mg Capsule] 800 mg PO BID 02/19/20 Glipizide [Glocotrol 10 Mg Tablet] 20 mg PO DAILY 02/19/20 Ibuprofen [Ibu] 800 mg PO TID 02/19/20 Ibuprofen/Diphenhydramine HCl [Advil Pm Liqui-Gels] 1 each PO HSP PRN 02/19/20 Insulin Aspart Prot/Insuln Asp [Novolog Mix 70-30 Flexpen Syrn] 32 unit SQ BID 02/19/20 Loperamide HCl [Anti-Diarrheal] 2 mg PO DAILYP PRN 02/19/20 Metformin HCl 2,000 mg PO DAILY 02/19/20 Pravastatin Sodium 10 mg PO BID 02/19/20 Prazosin HCl 4 mg PO QHS 02/19/20 Propranolol HCl [Inderal Xl] 80 mg PO DAILY 02/19/20 Allergies/Adverse Reactions: Penicillins Allergy (Verified 09/15/19 14:33) steroids Allergy (Uncoded 02/19/20 01:21) Review of Systems Constitutional: PRESENT: as per HPI Eyes: ABSENT: visual disturbances Ears: ABSENT: hearing changes Gastrointestinal: PRESENT: bloating Integumentary: PRESENT: other - Insensate feet Neurological: PRESENT: numbness, paresthesias, restless legs, other Physical Exam Vital Signs: Temp Pulse Resp BP Pulse Ox 97.3 F 81 20 128/60 H 93 02/19/20 15:33 02/19/20 15:33 02/19/20 15:33 02/19/20 15:33 02/19/20 15:33 Intake & Output 02/18/20 02/19/20 02/20/20 06:59 06:59 06:59 Intake Total 50 Balance 50 Weight 147.418 kg 149 kg General appearance: PRESENT: obese Head exam: PRESENT: normocephalic Eye exam: PRESENT: EOMI Mouth exam: PRESENT: dry mucosa Neck exam: PRESENT: full ROM Respiratory exam: PRESENT: clear to auscultation tamra Cardiovascular exam: PRESENT: RRR Pulses: PRESENT: normal carotid pulses, normal radial pulses, normal dorsalis pedis pul, other - Unable to palpate posterior tibial pulses GI/Abdominal exam: PRESENT: soft Rectal exam: PRESENT: deferred Extremities exam: PRESENT: full ROM, other - Moderate edema bilaterally. Ulcer, central aspect, with hypertrophic callus plantar aspect left great toe, moderate erythema webspace and forefoot Musculoskeletal exam: PRESENT: full ROM Neurological exam: PRESENT: oriented to person, oriented to place, oriented to time, oriented to situation Psychiatric exam: PRESENT: appropriate affect Skin exam: PRESENT: dry Results Laboratory Results: 02/19/20 01:59 02/19/20 01:59 12/02/19/20 02/19/20 01:59 01:59 01:59 WBC 6.0 RBC 3.96 Hgb 11.8 L Hct 34.8 L MCV 88 MCH 29.9 MCHC 34.0 RDW 14.4 H Plt Count 250 Seg Neutrophils % 60.2 Sodium 142.0 Potassium 4.6 Chloride 102 Carbon Dioxide 33 H Anion Gap 7 BUN 25 H Creatinine 1.05 Est GFR ( Amer) > 60 Glucose 118 H Lactic Acid 1.2 Calcium 9.5 Total Bilirubin 0.4 AST 15 Alkaline Phosphatase 86 C-Reactive Protein Total Protein 6.6 Albumin 3.5 02/19/20 01:59 WBC RBC Hgb Hct MCV MCH MCHC RDW Plt Count Seg Neutrophils % Sodium Potassium Chloride Carbon Dioxide Anion Gap BUN Creatinine Est GFR ( Amer) Glucose Lactic Acid Calcium Total Bilirubin AST Alkaline Phosphatase C-Reactive Protein 41.3 H Total Protein Albumin Impressions: Foot X-Ray 02/19/20 01:22 IMPRESSION: No acute bony abnormality. Assessment & Plan - Diagnosis (1) Ulcer of toe due to diabetes Qualifiers: Diabetes mellitus type: type 2 Laterality: left Non-pressure ulcer stage: with other severity Qualified Code(s): E11.621 - Type 2 diabetes mellitus with foot ulcer; L97.528 - Non-pressure chronic ulcer of other part of left foot with other specified severity Is this a current diagnosis for this admission?: Yes Plan: Impression: Classic diabetic foot ulcer involving the plantar aspect of the left great toe, suspect involving tissue, high suspicion for osteomyelitis, with cellulitis involving the distal forefoot Recommendations: 1. We will debride left great toe at bedside, obtain deep wound cultures. 2. Post debridement, wound vacs into the deep soft tissue of the foot, patient, and highly suspicious for osteomyelitis of the left great toe distal phalanx. Seriously doubt this toe will survive long-term given patient's multiple risk factors including diabetes mellitus, smoking history, peripheral neuropathy. Patient disinterested in left great toe amputation at this time. 3. Discussed above with primary care team. Will initiate dressing changes and follow patient with you. (2) Edema of both lower extremities Is this a current diagnosis for this admission?: Yes Plan: Chronic lymphedema of the lower extremities without ulceration (3) Cellulitis Qualifiers: Site of cellulitis: extremity Site of cellulitis of extremity: lower extremity Laterality: left Qualified Code(s): L03.116 - Cellulitis of left lower limb Is this a current diagnosis for this admission?: Yes (4) Morbid obesity with BMI of 45.0-49.9, adult Is this a current diagnosis for this admission?: Yes (5) PTSD (post-traumatic stress disorder) Is this a current diagnosis for this admission?: Yes (6) Tobacco dependence Is this a current diagnosis for this admission?: Yes
--- NOTE | 2020-02-19 16:36 | Operative Report ---
Operative Report DATE OF SURGERY: 02/19/20 PREOPERATIVE DIAGNOSIS: 1. Diabetic foot ulcer involving the left great toe pl fred aspect. 2. Smoking abuse. 3. Obesity POSTOPERATIVE DIAGNOSIS: Same with involvement of deep soft tissue, tendon; suspicious for osteomyelitis OPERATION: Excisional debridement of left great toe plantar aspect skin, subcutaneous tissue, fascia with wound culture SURGEON: ADELFO ELKINS ANESTHESIA: Local TISSUE REMOVED OR ALTERED: Skin, subcutaneous tissue fascia COMPLICATIONS: None ESTIMATED BLOOD LOSS: 15 cc INTRAOPERATIVE FINDINGS: See below PROCEDURE: Patient was seen in the patient's room, left foot prepped and draped in sterile fashion with Betadine. Surgical plan surgical timeout were conducted. The plantar surface of the left great toe at the site of the diabetic foot ulcer was anesthetized 1% plain lidocaine. All hypertrophic skin and callus excised with a #10 blade. Underlying subcutaneous tissue and fibrous excisionally debrided with scissors. The wound tracked proximally towards the base of the of the toe, as well as proximal bone. No counterincisions were made. Deep wound culture sent for Gram stain, culture and sensitivity. Wound irrigated with peroxide, then packed open with gauze, dry gauze applied and a Kerlix wrap applied. Patient tolerated procedure well.
[2020-02-19] MEDS: CEFEPIME HCL 2 GM in DEXTROSE 5%-WATER 50 ML IV SCH (20:29)
[2020-02-19] MEDS ORDERED: CEFAZOLIN SODIUM 2 GM in DEXTROSE 5%-WATER 100 ML IV SCH (20:30)
--- NOTE | 2020-02-19 23:01 | RADIOLOGY REPORT (SQ) ---
MR LOWER EXTREMITY WITHOUT IV CONTRAST HISTORY: Ulceration of the great toe. Evaluate for acute osteomyelitis. COMPARISON: Radiographs from earlier the same day. TECHNIQUE: Multiplanar, multisequence MR imaging of the left foot was performed without the administration of intravenous gadolinium. FINDINGS: There is mildly decreased T1 signal with increased bone marrow edema within the distal phalanx of the great toe. Additionally, there is a focal soft tissue ulceration in this region along the plantar and medial aspect, with soft tissue swelling. No fluid collection is seen. Diffuse edema throughout the intrinsic foot musculature with fatty atrophy is consistent with myositis, which may be neurogenic or reactive. The visualized tendons are intact. Mild subcutaneous edema overlying the dorsum of foot. No acute fracture is evident. IMPRESSION: Acute osteomyelitis of the distal phalanx great toe, with underlying soft tissue ulceration and swelling.
[2020-02-20] MEDS: OXYCODONE-ACETAMINOPHEN 5-325 MG TABLET PO PRN ×2 (05:04→12:05)
[2020-02-20] MEDS ORDERED: CEFEPIME HCL 2 GM in DEXTROSE 5%-WATER 50 ML IV SCH ×2 (06:00→19:30)
[2020-02-20 06:55] LABS: ABSOLUTE EOSINOPHILS # (AUTO) 0.1 10^3/uL (0.0-0.6); ABSOLUTE LYMPHOCYTES (AUTO) 0.6 10^3/uL (0.5-4.7); ABSOLUTE MONOCYTES (AUTO) 0.4 10^3/uL (0.1-1.4); ABSOLUTE NEUT (AUTO) 2.9 10^3/uL (1.7-8.2); BASOPHILS % (AUTO) 0.6 % (0-2); EOSINOPHILS % (AUTO) 2.4 % (0-6); HEMATOCRIT 31.9 % (36.0-47.0); HEMOGLOBIN 10.8 g/dL (12.0-15.5); LYMPHOCYTES % (AUTO) 15.4 % (13-45); MEAN CORPUSCULAR HEMOGLOBIN 29.9 pg (27.0-33.4); MEAN CORPUSCULAR HGB CONC 33.8 g/dL (32.0-36.0); MEAN CORPUSCULAR VOLUME 89 fl (80-97); MONOCYTES % (AUTO) 9.1 % (3-13); PLATELET COUNT 207 10^3/uL (150-450); RED BLOOD COUNT 3.61 10^6/uL (3.72-5.28); SEGMENTED NEUTROPHILS % (AUTO) 72.5 % (42-78); TOTAL CELLS COUNTED % (AUTO) 100 %
[2020-02-20 07:16] LABS: ANION GAP 5 (5-19); BLOOD UREA NITROGEN 18 mg/dL (7-20); CARBON DIOXIDE 26 mmol/L (22-30); CHLORIDE 101 mmol/L (98-107); GLUCOSE 212 mg/dL (75-110); POTASSIUM 4.8 mmol/L (3.6-5.0)
[2020-02-20] MEDS: FAMOTIDINE 20 MG TABLET PO SCH ×2 (09:33→22:00)
[2020-02-20] MEDS: CEFEPIME HCL 2 GM in DEXTROSE 5%-WATER 50 ML IV SCH ×2 (09:33→22:08)
[2020-02-20] MEDS: HUM INSULIN NPH/REG INSULIN HM 100 UNIT/1 ML 3 ML SUBCUT SCH ×2 (09:34→17:13)
[2020-02-20] MEDS: INSULIN REG, HUMAN 100 UNIT/ML 3 ML VIAL (PYX) SUBCUT SCH ×4 (09:35→22:09)
[2020-02-20] MEDS: VANCOMYCIN HCL 1,500 MG in DEXTROSE 5%-WATER 250 ML IV SCH ×2 (09:45→22:10)
--- NOTE | 2020-02-20 11:14 | PDOC PROGRESS REPORT ---
Subjective Date:: 02/20/20 Reason For Visit: DIABETIC FOOT WOUND WITH CELLULITIS Patient on the phone with her significant other who was cussing at her. Physical Exam Vital Signs: Temp Pulse Resp BP Pulse Ox 98.0 F 94 18 137/67 H 95 02/20/20 08:05 02/20/20 08:05 02/20/20 08:05 02/20/20 08:05 02/20/20 08:05 Intake & Output 02/19/20 02/20/20 02/21/20 06:59 06:59 06:59 Intake Total 50 550 Balance 50 550 Weight 147.418 kg 149 kg Musculoskeletal exam: PRESENT: other - Left great toe examined, packing removed. The wound has seropurulent discharge from the debrided site. There is tracking using a Q-tip towards the's of the toe; erythema of the distal foot not resolved Results Laboratory Results: 02/20/20 05:53 02/20/20 05:53 02/20/20 02/20/20 05:53 05:53 WBC 4.0 RBC 3.61 L Hgb 10.8 L Hct 31.9 L MCV 89 MCH 29.9 MCHC 33.8 RDW 14.0 Plt Count 207 Seg Neutrophils % 72.5 Sodium 131.8 L Potassium 4.8 Chloride 101 Carbon Dioxide 26 Anion Gap 5 BUN 18 Creatinine 0.78 Est GFR ( Amer) > 60 Glucose 212 H Calcium 9.0 02/19/20 04:02 Blood Blood Culture (PCR) - Final Staphylococcus Species Impressions: Lower Extremity MRI 02/19/20 00:00 IMPRESSION: Acute osteomyelitis of the distal phalanx great toe, with underlying soft tissue ulceration and swelling. Foot X-Ray 02/19/20 01:22 IMPRESSION: No acute bony abnormality. Assessment & Plan - Diagnosis (1) Ulcer of toe due to diabetes Qualifiers: Diabetes mellitus type: type 2 Laterality: left Non-pressure ulcer stage: with other severity Qualified Code(s): E11.621 - Type 2 diabetes mellitus with foot ulcer; L97.528 - Non-pressure chronic ulcer of other part of left foot with other specified severity Is this a current diagnosis for this admission?: Yes Plan: Impression: Persisting left great toe infection despite IV fluids, intravenous antibiotics, and surgical debridement. Toe was not salvageable. When I discussed toe amputation yesterday, patient wanted nothing to do with it. Recommendations: 1. Discussed patient with Dr. Schuster; he will talk to patient about my recommendation for left great toe amputation 2. We will continue to follow patient with you. (2) Edema of both lower extremities Is this a current diagnosis for this admission?: Yes (3) Cellulitis Qualifiers: Site of cellulitis: extremity Site of cellulitis of extremity: lower extremity Laterality: left Qualified Code(s): L03.116 - Cellulitis of left lower limb Is this a current diagnosis for this admission?: Yes (4) Morbid obesity with BMI of 45.0-49.9, adult Is this a current diagnosis for this admission?: Yes (5) PTSD (post-traumatic stress disorder) Is this a current diagnosis for this admission?: Yes (6) Tobacco dependence Is this a current diagnosis for this admission?: Yes - Time Anticipated Discharge Disposition: Home, Self Care Anticipated Discharge Timeframe: within 24 hours
[2020-02-20] MEDS: BUSPIRONE HCL 10 MG TABLET PO SCH ×2 (12:16→21:59)
[2020-02-20] MEDS: FUROSEMIDE 40 MG TABLET PO SCH (12:16)
[2020-02-20] MEDS: GABAPENTIN 400 MG CAPSULE PO SCH ×2 (13:40→17:15)
[2020-02-20] MEDS: PROPRANOLOL HCL 40 MG TABLET PO SCH (13:42)
[2020-02-20] MEDS: NICOTINE 14 MG/24 HR PATCH.TD24 TD PRN (17:37)
--- NOTE | 2020-02-20 18:05 | PDOC PROGRESS REPORT ---
Subjective Date:: 02/20/20 Subjective:: Patient feels a little anxious this morning. I have had a long conversation with patient and regarding surgery's recommendation for amputation and patient remains adamant that she does not want amputation. Reason For Visit: DIABETIC FOOT WOUND WITH CELLULITIS Physical Exam Vital Signs: Temp Pulse Resp BP Pulse Ox 97.2 F 70 16 158/81 H 98 02/20/20 16:00 02/20/20 16:00 02/20/20 16:00 02/20/20 12:00 02/20/20 16:00 Intake & Output 02/19/20 02/20/20 02/21/20 06:59 06:59 06:59 Intake Total 50 550 368 Balance 50 550 368 Weight 147.418 kg 149 kg General appearance: PRESENT: no acute distress, cooperative Neck exam: ABSENT: JVD Respiratory exam: PRESENT: symmetrical, unlabored. ABSENT: accessory muscle use, tachypnea, wheezes Cardiovascular exam: PRESENT: RRR, +S1, +S2. ABSENT: tachycardia GI/Abdominal exam: PRESENT: soft. ABSENT: rebound, rigid, tenderness Neurological exam: PRESENT: alert, awake, oriented to person, oriented to place, oriented to time, oriented to situation Psychiatric exam: ABSENT: agitated, anxious Results Laboratory Results: 02/20/20 05:53 02/20/20 05:53 02/20/20 02/20/20 05:53 05:53 WBC 4.0 RBC 3.61 L Hgb 10.8 L Hct 31.9 L MCV 89 MCH 29.9 MCHC 33.8 RDW 14.0 Plt Count 207 Seg Neutrophils % 72.5 Sodium 131.8 L Potassium 4.8 Chloride 101 Carbon Dioxide 26 Anion Gap 5 BUN 18 Creatinine 0.78 Est GFR ( Amer) > 60 Glucose 212 H Calcium 9.0 02/19/20 04:02 Blood Blood Culture (PCR) - Final Staphylococcus Species Impressions: Lower Extremity MRI 02/19/20 00:00 IMPRESSION: Acute osteomyelitis of the distal phalanx great toe, with underlying soft tissue ulceration and swelling. Foot X-Ray 02/19/20 01:22 IMPRESSION: No acute bony abnormality. Assessment and Plan - Diagnosis (1) Acute osteomyelitis Is this a current diagnosis for this admission?: Yes Plan: Associated with diabetes. MRI confirms osteomyelitis of the left big toe. Surgery recommends amputation but the patient has declined this. Patient is fully aware of the risks of further spreading of the infection which may end up requiring further loss of limb. For now patient is opting for only antibiotic therapy. Awaiting deep tissue culture from surgical debridement to help guide therapy. Patient will be set up for IV antibiotics for 6 weeks. PICC line placement on Saturday. (2) Cellulitis Qualifiers: Site of cellulitis: extremity Site of cellulitis of extremity: lower extremity Laterality: left Qualified Code(s): L03.116 - Cellulitis of left lower limb Is this a current diagnosis for this admission?: Yes Plan: Presents with foot ulcer with surrounding erythema, swelling and tenderness Continue vancomycin and cefepime. (3) Depression Is this a current diagnosis for this admission?: Yes Plan: Continue home psych meds (4) Morbid obesity with BMI of 45.0-49.9, adult Is this a current diagnosis for this admission?: Yes (5) PTSD (post-traumatic stress disorder) Is this a current diagnosis for this admission?: Yes (6) Tobacco dependence Is this a current diagnosis for this admission?: Yes Plan: Nicotine patch (7) Hyperglycemia due to type 2 diabetes mellitus Qualifiers: Diabetes mellitus alf insulin use: without drug coordinator use Qualified Code(s): E11.65 - Type 2 diabetes mellitus with hyperglycemia Is this a current diagnosis for this admission?: Yes Plan: Hyperglycemic today. Resumed patient's premixed 70/30 insulin. Metformin. Glipizide. A1c shows very good control. Accu-Cheks with sliding scale. - Time Time Spent with patient: 15-24 minutes Anticipated Discharge Disposition: Home, Self Care Anticipated Discharge Timeframe: within 48 hours
[2020-02-20] MEDS: METFORMIN HCL 500 MG TABLET PO SCH (19:58)
[2020-02-20] MEDS: BACLOFEN 10 MG TABLET PO SCH (21:59)
[2020-02-20] MEDS: DONEPEZIL HCL 5 MG TABLET PO SCH (21:59)
[2020-02-20] MEDS: DOXEPIN HCL 25 MG CAPSULE PO SCH (21:59)
[2020-02-20] MEDS ORDERED: PRAZOSIN HCL 2 MG PO SCH (22:00)
[2020-02-20] MEDS: DIVALPROEX SODIUM 500 MG TAB.SR.24H PO SCH (22:10)
[2020-02-20 22:39] LABS: VANCOMYCIN,TROUGH 12.2 ug/mL (5.0-20.0)
[2020-02-21] MEDS: LOPERAMIDE HCL 2 MG CAPSULE PO PRN ×2 (03:49→21:54)
[2020-02-21] MEDS: OXYCODONE-ACETAMINOPHEN 5-325 MG TABLET PO PRN ×4 (03:52→23:19)
[2020-02-21] MEDS: METFORMIN HCL 500 MG TABLET PO SCH ×2 (08:00→16:39)
[2020-02-21] MEDS: HUM INSULIN NPH/REG INSULIN HM 100 UNIT/1 ML 3 ML SUBCUT SCH ×2 (08:01→16:39)
[2020-02-21] MEDS: INSULIN REG, HUMAN 100 UNIT/ML 3 ML VIAL (PYX) SUBCUT SCH ×4 (08:01→21:53)
[2020-02-21] MEDS: GLIPIZIDE 10 MG TABLET PO SCH (09:24)
[2020-02-21] MEDS: FUROSEMIDE 40 MG TABLET PO SCH (09:24)
[2020-02-21] MEDS: FAMOTIDINE 20 MG TABLET PO SCH ×2 (09:24→21:54)
[2020-02-21] MEDS: GABAPENTIN 400 MG CAPSULE PO SCH ×2 (09:24→17:18)
[2020-02-21] MEDS: PROPRANOLOL HCL 40 MG TABLET PO SCH (09:24)
[2020-02-21] MEDS: BACLOFEN 10 MG TABLET PO SCH ×2 (09:24→21:52)
[2020-02-21] MEDS: CEFEPIME HCL 2 GM in DEXTROSE 5%-WATER 50 ML IV SCH ×2 (09:25→21:54)
[2020-02-21] MEDS: BUSPIRONE HCL 10 MG TABLET PO SCH ×2 (09:28→21:53)
[2020-02-21] MEDS: VANCOMYCIN HCL 1,500 MG in DEXTROSE 5%-WATER 250 ML IV SCH (10:32)
--- NOTE | 2020-02-21 13:03 | PDOC PROGRESS REPORT ---
Subjective Date:: 02/21/20 Reason For Visit: DIABETIC FOOT WOUND WITH CELLULITIS Patient sitting in chair; not interested in toe amputation. Physical Exam Vital Signs: Temp Pulse Resp BP Pulse Ox 97.2 F 72 18 121/63 95 02/21/20 11:21 02/21/20 11:21 02/21/20 11:21 02/21/20 11:21 02/21/20 11:21 Intake & Output 02/20/20 02/21/20 02/22/20 06:59 06:59 06:59 Intake Total 550 1378 120 Balance 550 1378 120 Weight 149 kg 141.2 kg Musculoskeletal exam: PRESENT: other - Dressing dry; wound with purulent drainage, persisting swelling of toe and forefoot. Results Laboratory Results: 02/20/20 05:53 02/20/20 05:53 02/19/20 04:02 Blood Blood Culture (PCR) - Final Staphylococcus Species Impressions: Lower Extremity MRI 02/19/20 00:00 IMPRESSION: Acute osteomyelitis of the distal phalanx great toe, with underlying soft tissue ulceration and swelling. Foot X-Ray 02/19/20 01:22 IMPRESSION: No acute bony abnormality. Assessment & Plan - Diagnosis (1) Ulcer of toe due to diabetes Qualifiers: Diabetes mellitus type: type 2 Laterality: left Non-pressure ulcer stage: with other severity Qualified Code(s): E11.621 - Type 2 diabetes mellitus with foot ulcer; L97.528 - Non-pressure chronic ulcer of other part of left foot with other specified severity Is this a current diagnosis for this admission?: Yes Plan: Assessment: No clinical improvement, despite IV antibiotics, dressing changes,in this unsalvageable left great toe with multiple comorbidities including smoker, obese,diabetic female Plan: 1. This patient is not interested in sepsis source control which would require left great toe debridement, surgery will sign off. Fortunately patient's infection will progress and result in greater tissue loss. 2. I discussed this with Dr. Schuster, hospitalist. (2) Edema of both lower extremities Is this a current diagnosis for this admission?: Yes (3) Cellulitis Qualifiers: Site of cellulitis: extremity Site of cellulitis of extremity: lower extremity Laterality: left Qualified Code(s): L03.116 - Cellulitis of left lower limb Is this a current diagnosis for this admission?: Yes (4) Morbid obesity with BMI of 45.0-49.9, adult Is this a current diagnosis for this admission?: Yes (5) PTSD (post-traumatic stress disorder) Is this a current diagnosis for this admission?: Yes (6) Tobacco dependence Is this a current diagnosis for this admission?: Yes - Time Anticipated Discharge Disposition: Home, Self Care Anticipated Discharge Timeframe: within 48 hours
--- NOTE | 2020-02-21 14:51 | PDOC PROGRESS REPORT ---
Subjective Reason For Visit: DIABETIC FOOT WOUND WITH CELLULITIS Physical Exam Vital Signs: Temp Pulse Resp BP Pulse Ox 97.2 F 72 18 121/63 95 02/21/20 11:21 02/21/20 11:21 02/21/20 11:21 02/21/20 11:21 02/21/20 11:21 Intake & Output 02/20/20 02/21/20 02/22/20 06:59 06:59 06:59 Intake Total 550 1378 370 Balance 550 1378 370 Weight 149 kg 141.2 kg General appearance: PRESENT: no acute distress, cooperative Neck exam: ABSENT: JVD Respiratory exam: PRESENT: unlabored. ABSENT: wheezes Cardiovascular exam: PRESENT: +S1, +S2. ABSENT: tachycardia Neurological exam: PRESENT: alert, awake Results Laboratory Results: 02/20/20 05:53 02/20/20 05:53 02/19/20 04:02 Blood Blood Culture (PCR) - Final Staphylococcus Species Impressions: Lower Extremity MRI 02/19/20 00:00 IMPRESSION: Acute osteomyelitis of the distal phalanx great toe, with underlying soft tissue ulceration and swelling. Foot X-Ray 02/19/20 01:22 IMPRESSION: No acute bony abnormality. Assessment and Plan - Diagnosis (1) Acute osteomyelitis Is this a current diagnosis for this admission?: Yes Plan: Associated with diabetes. MRI confirms osteomyelitis of the left big toe. Surgery recommends amputation but the patient has declined this. Patient is fully aware of the risks of further spreading of the infection which may end up requiring further loss of limb. For now patient is opting for only antibiotic therapy. Deep tissue culture growing Klebsiella and Pseudomonas. She will need 45 days of abx ID consulted regarding if oral ciprofloxacin will suffice or if patient will need IV abx. (2) Cellulitis Qualifiers: Site of cellulitis: extremity Site of cellulitis of extremity: lower extremity Laterality: left Qualified Code(s): L03.116 - Cellulitis of left lower limb Is this a current diagnosis for this admission?: Yes (3) Depression Is this a current diagnosis for this admission?: Yes (4) Morbid obesity with BMI of 45.0-49.9, adult Is this a current diagnosis for this admission?: Yes (5) PTSD (post-traumatic stress disorder) Is this a current diagnosis for this admission?: Yes (6) Tobacco dependence Is this a current diagnosis for this admission?: Yes (7) Hyperglycemia due to type 2 diabetes mellitus Qualifiers: Diabetes mellitus watermelon harvesting supervisor insulin use: without longterm use Qualified Code(s): E11.65 - Type 2 diabetes mellitus with hyperglycemia Is this a current diagnosis for this admission?: Yes - Time Time Spent with patient: Less than 15 minutes Anticipated Discharge Disposition: Home, Self Care Anticipated Discharge Timeframe: within 24 hours
[2020-02-21 18:31] LABS: C DIFFICILE GDH NEGATIVE (NEGATIVE)
[2020-02-21] MEDS: DONEPEZIL HCL 5 MG TABLET PO SCH (21:52)
[2020-02-21] MEDS: DIVALPROEX SODIUM 500 MG TAB.SR.24H PO SCH (21:53)
[2020-02-21] MEDS: DOXEPIN HCL 25 MG CAPSULE PO SCH (21:54)
[2020-02-22] MEDS: OXYCODONE-ACETAMINOPHEN 5-325 MG TABLET PO PRN ×2 (05:50→11:55)
[2020-02-22] MEDS: METFORMIN HCL 500 MG TABLET PO SCH (07:41)
[2020-02-22] MEDS: HUM INSULIN NPH/REG INSULIN HM 100 UNIT/1 ML 3 ML SUBCUT SCH (07:41)
[2020-02-22] MEDS: INSULIN REG, HUMAN 100 UNIT/ML 3 ML VIAL (PYX) SUBCUT SCH ×2 (07:42→11:55)
[2020-02-22] MEDS: GLIPIZIDE 10 MG TABLET PO SCH (09:19)
[2020-02-22] MEDS: PROPRANOLOL HCL 40 MG TABLET PO SCH (09:19)
[2020-02-22] MEDS: FUROSEMIDE 40 MG TABLET PO SCH (09:19)
[2020-02-22] MEDS: GABAPENTIN 400 MG CAPSULE PO SCH (09:20)
[2020-02-22] MEDS: FAMOTIDINE 20 MG TABLET PO SCH (09:20)
[2020-02-22] MEDS: BUSPIRONE HCL 10 MG TABLET PO SCH (09:20)
[2020-02-22] MEDS: CEFEPIME HCL 2 GM in DEXTROSE 5%-WATER 50 ML IV SCH (09:20)
[2020-02-22] MEDS: BACLOFEN 10 MG TABLET PO SCH (09:20)
--- NOTE | 2020-02-22 10:54 | PDOC DISCHARGE SUMMARY ---
Impression - Admit/DC Date/PCP Admission Date/Primary Care Provider: 02/19/20 11:49 DARRICK PEREIRA DO Discharge Date: 02/22/20 - Discharge Diagnosis (1) Acute osteomyelitis Is this a current diagnosis for this admission?: Yes (2) Cellulitis Is this a current diagnosis for this admission?: Yes (3) Depression Is this a current diagnosis for this admission?: Yes (4) Morbid obesity with BMI of 45.0-49.9, adult Is this a current diagnosis for this admission?: Yes (5) PTSD (post-traumatic stress disorder) Is this a current diagnosis for this admission?: Yes (6) Tobacco dependence Is this a current diagnosis for this admission?: Yes (7) Hyperglycemia due to type 2 diabetes mellitus Is this a current diagnosis for this admission?: Yes - Additional Information Resuscitation Status: Full Code Discharge Diet: Diabetic Discharge Activity: Activity As Tolerated Referrals: DARRICK PEREIRA DO [Primary Care Provider] - Follow up as needed Prescriptions: Ciprofloxacin HCl [Cipro 750 mg Tablet] 750 mg PO Q12 42 Days tablet Metronidazole [Flagyl 500 mg Tablet] 500 mg PO TID 42 Days tablet Home Medications: Baclofen [Baclofen 10 mg Tablet] 5 mg PO BID 02/19/20 Buspirone HCl 30 mg PO BID 02/19/20 Diphenhydramine HCl [Allergy Relief] 50 mg PO DAILYP PRN 02/19/20 Divalproex Sodium [Depakote ER 500 mg Tab.sr] 1,500 mg PO QHS 02/19/20 Donepezil HCl 10 mg PO BID 02/19/20 Doxepin HCl [[place] 25 mg Capsule] 100 mg PO QHS 02/19/20 Furosemide [Lasix 40 mg Tablet] 40 mg PO DAILY 02/19/20 Gabapentin [Neurontin 400 mg Capsule] 800 mg PO BID 02/19/20 Glipizide [Glucotrol 10 mg Tablet] 20 mg PO DAILY 02/19/20 Ibuprofen [Ibu] 800 mg PO TID 02/19/20 Insulin Aspart Prot/Insuln Asp [Novolog Mix 70-30 Flexpen] 32 unit SQ BID 02/19/20 Loperamide HCl [Anti-Diarrheal] 2 mg PO DAILYP PRN 02/19/20 Metformin HCl 2,000 mg PO DAILY 02/19/20 Pravastatin Sodium 10 mg PO BID 02/19/20 Prazosin HCl 4 mg PO QHS 02/19/20 Propranolol HCl [Inderal Xl] 80 mg PO DAILY 02/19/20 Ciprofloxacin HCl [Cipro 750 mg Tablet] 750 mg PO Q12 42 Days tablet 02/22/20 Metronidazole [Flagyl 500 mg Tablet] 500 mg PO TID 42 Days tablet 02/22/20 History of Present Illiness History of Present Illness: According to admitting provider: MEAGAN FLORES is a 44 year old female with a history of type 2 diabetes, PTSD and depression who presents with duration of worsening of left big toe pain and wound. Patient reports that she was seen by glass tinter on 01/19 and corn was removed and she stated that it was painless at the time of procedure and in the period immediately following that. The past week she developed worsening pain and about a week ago she started having swelling and erythema surrounding the ulcer site. Was seen at the ED 4 days back for a similar reason and she was discharged on Bactrim. She states that she has been compliant with the medication but the wound and redness continued to get worse. She was evaluated by podiatry a day ago and recommended IV antibiotics and she was referred to the ED for further assessment. She denies any fever, chills, nausea, vomiting. Hospital Course Hospital Course: Patient presented with diabetic foot infection. Patient underwent surgical debridement. Blood cultures were done which only showed contaminant. Otherwise negative. ESR is elevated at 63. Patient was started on broad-spectrum antibiotics with vancomycin and cefepime. MRI revealed acute osteomyelitis involving the left great toe. Surgery evaluated and recommended surgical amputation. It was thoroughly explained to patient on few occasions that amputation was the more appropriate source control rather than long-term antibiotics and that foregoing amputation would likely lead to greater loss of limb eventually. However, patient refused amputation. Deep tissue culture did revealed Pseudomonas and Klebsiella both sensitive to quinolones. I discussed via phone with infectious diseases today regarding antibiotic selection and ID recommending p.o. ciprofloxacin 750 mg every 12 hours and anaerobic coverage with Flagyl. Patient will be set to complete a 45-day course of treatment. I have instructed her to follow-up with her glass tinter which she will be seeing very soon as well as her primary care provider to monitor her disease and to check serial labs. Patient has been set up with home health to help with wound management. She has also been taught by nurse and her has been thought as well how to do her wound dressings. Physical Exam Vital Signs: Temp Pulse Resp BP Pulse Ox 97.8 F 87 18 134/73 H 97 02/22/20 08:07 02/22/20 08:07 02/22/20 08:07 02/22/20 08:07 02/22/20 08:07 Intake & Output 02/21/20 02/22/20 02/23/20 06:59 06:59 06:59 Intake Total 1378 370 Balance 1378 370 Weight 141.2 kg 141.2 kg General appearance: PRESENT: no acute distress, cooperative Neck exam: ABSENT: JVD Respiratory exam: PRESENT: symmetrical, unlabored. ABSENT: accessory muscle use, tachypnea, wheezes Extremities exam: PRESENT: other - Deep ulceration of left great toe Neurological exam: PRESENT: alert, awake Results Laboratory Results: WBC 4.0 10^3/uL (4.0-10.5) 02/20/20 05:53 RBC 3.61 10^6/uL (3.72-5.28) L 02/20/20 05:53 Hgb 10.8 g/dL (12.0-15.5) L 02/20/20 05:53 Hct 31.9 % (36.0-47.0) L 02/20/20 05:53 MCV 89 fl (80-97) 02/20/20 05:53 MCH 29.9 pg (27.0-33.4) 02/20/20 05:53 MCHC 33.8 g/dL (32.0-36.0) 02/20/20 05:53 RDW 14.0 % (11.5-14.0) 02/20/20 05:53 Plt Count 207 10^3/uL (150-450) 02/20/20 05:53 Lymph % (Auto) 15.4 % (13-45) 02/20/20 05:53 [place] % (Auto) 9.1 % (3-13) 02/20/20 05:53 Eos % (Auto) 2.4 % (0-6) 02/20/20 05:53 Baso % (Auto) 0.6 % (0-2) 02/20/20 05:53 Absolute Neuts (auto) 2.9 10^3/uL (1.7-8.2) 02/20/20 05:53 Absolute Lymphs (auto) 0.6 10^3/uL (0.5-4.7) 02/20/20 05:53 Absolute Monos (auto) 0.4 10^3/uL (0.1-1.4) 02/20/20 05:53 Absolute Eos (auto) 0.1 10^3/uL (0.0-0.6) 02/20/20 05:53 Absolute Basos (auto) 0.0 10^3/uL (0.0-0.2) 02/20/20 05:53 Seg Neutrophils % 72.5 % (42-78) 02/20/20 05:53 ESR 63 mm/hr (0-20) H 02/19/20 10:10 Sodium 131.8 mmol/L (137-145) L 02/20/20 05:53 Potassium 4.8 mmol/L (3.6-5.0) 02/20/20 05:53 Chloride 101 mmol/L (98-107) 02/20/20 05:53 Carbon Dioxide 26 mmol/L (22-30) 02/20/20 05:53 Anion Gap 5 (5-19) 02/20/20 05:53 BUN 18 mg/dL (7-20) 02/20/20 05:53 Creatinine 0.78 mg/dL (0.52-1.25) 02/20/20 05:53 Est GFR ( Amer) > 60 (>60) 02/20/20 05:53 Est GFR (MDRD) Non-Af > 60 (>60) 02/20/20 05:53 Glucose 212 mg/dL (75-110) H 02/20/20 05:53 POC Glucose 313 mg/dL (70-110) H 02/22/20 06:55 Hemoglobin A1c % 6.7 % (4.7-6.0) H 02/20/20 05:53 Lactic Acid 1.2 mmol/L (0.7-2.1) 02/19/20 01:59 Calcium 9.0 mg/dL (8.4-10.2) 02/20/20 05:53 Total Bilirubin 0.4 mg/dL (0.2-1.3) 02/19/20 01:59 Direct Bilirubin 0.2 mg/dL (0.0-0.4) 02/19/20 01:59 Neonat Total Bilirubin Not Reportable 02/19/20 01:59 Neonat Direct Bilirubin Not Reportable 02/19/20 01:59 Neonat Indirect Bili Not Reportable 02/19/20 01:59 AST 15 U/L (14-36) 02/19/20 01:59 ALT 11 U/L (<35) 02/19/20 01:59 Alkaline Phosphatase 86 U/L (38-126) 02/19/20 01:59 C-Reactive Protein 41.3 mg/L (<10.0) H 02/19/20 01:59 Total Protein 6.6 g/dL (6.3-8.2) 02/19/20 01:59 Albumin 3.5 g/dL (3.5-5.0) 02/19/20 01:59 Stl C. Difficile GDH Ag NEGATIVE (NEGATIVE) 02/21/20 16:55 Stl C.difficile Tox A&B NEGATIVE (NEGATIVE) 02/21/20 16:55 Time Trough Drawn 2130 02/20/20 21:30 Vancomycin Trough 12.2 ug/mL (5.0-20.0) 02/20/20 21:30 Influenza A (RT-PCR) NEGATIVE (NEGATIVE) 02/19/20 13:15 Influenza B (RT-PCR) NEGATIVE (NEGATIVE) 02/19/20 13:15 RSV (RT-PCR) NEGATIVE (NEGATIVE) 02/19/20 13:15 SARS-CoV-2 Rap RNA(RT-PCR) NEGATIVE (NEGATIVE) 02/19/20 13:15 Impressions: Lower Extremity MRI 02/19/20 00:00 IMPRESSION: Acute osteomyelitis of the distal phalanx great toe, with underlying soft tissue ulceration and swelling. Foot X-Ray 02/19/20 01:22 IMPRESSION: No acute bony abnormality. Plan Time Spent: Greater than 30 Minutes Stroke Is this a Stroke Patient?: No Acute Heart Failure Is this a Heart Failure Patient?: No
[2020-02-22 11:15] VITALS: BP 158/81
[2020-02-22] MEDS ORDERED: METRONIDAZOLE 500 MG TABLET PO ONE (12:00)
--- NOTE | 2020-02-22 14:12 | Progress Note ---
Provider Note Provider Note: [facility] ID Telephone Advice Consultation Chart reviewed, patient not seen. This is a 44-year-old woman with obesity, uncontrolled DM2, chronic smoker, who developed a left great toe ulcer after a corn removal in January. She reported, per notes, that 4 days prior to admission she developed redness and pain in the great toe. She visited the ED and was discharged home on Bactrim. She didn't notice any improvement for which she came back to the hospital and was admitted for antibiotics. She was afebrile, HD stable, no leukocytosis, but MRI was consistent with acute osteomyelitis and soft tissue swelling. She was evaluated by surgery on 02/18 and had debridement of skin, soft tissue and fascia. Cultures were positive for Pseudomonas, Klebsiella and skin roselyn. She was started on vancomycin and cefepime. Surgery recommended toe amputation but patient refused. She would like to try antibiotics first. ID consulted for recommendations. Allergies: Penicillins Allergy (Verified 09/15/19 14:33) steroids Allergy (Uncoded 02/19/20 01:21) Medications: Baclofen [Baclofen 10 mg Tablet] 5 mg PO BID 02/19/20 Buspirone HCl 30 mg PO BID 02/19/20 Diphenhydramine HCl [Allergy Relief] 50 mg PO DAILYP PRN 02/19/20 Divalproex Sodium [Depakote ER 500 mg Tab.sr] 1,500 mg PO QHS 02/19/20 Donepezil HCl 10 mg PO BID 02/19/20 Doxepin HCl [Sinequan 25 mg Capsule] 100 mg PO QHS 02/19/20 Furosemide [Lasix 40 mg Tablet] 40 mg PO DAILY 02/19/20 Gabapentin [Neurontin 400 mg Capsule] 800 mg PO BID 02/19/20 Glipizide [Glucotrol 10 mg Tablet] 20 mg PO DAILY 02/19/20 Ibuprofen [Ibu] 800 mg PO TID 02/19/20 Insulin Aspart Prot/Insuln Asp [Novolog Mix 70-30 Flexpen] 32 unit SQ BID 02/19/20 Loperamide HCl [Anti-Diarrheal] 2 mg PO DAILYP PRN 02/19/20 Metformin HCl 2,000 mg PO DAILY 02/19/20 Pravastatin Sodium 10 mg PO BID 02/19/20 Prazosin HCl 4 mg PO QHS 12/18/20 Propranolol HCl [Inderal Xl] 80 mg PO DAILY 02/19/20 Jazmin Signs: Temp Pulse Resp BP Pulse Ox 97.8 F 87 18 158/81 H 97 02/22/20 11:13 02/22/20 11:13 02/22/20 11:13 02/22/20 11:13 02/22/20 11:13 Intake & Output 02/21/20 02/22/20 02/23/20 06:59 06:59 06:59 Intake Total 1378 370 Balance 1378 370 Weight 141.2 kg 141.2 kg Weight/Height Weight 141.2 kg Height 5 ft 11 in Laboratories: 02/20/20 05:53 02/20/20 05:53 MCV 89 fl (80-97) 02/20/20 05:53 MCH 29.9 pg (27.0-33.4) 02/20/20 05:53 MCHC 33.8 g/dL (32.0-36.0) 02/20/20 05:53 RDW 14.0 % (11.5-14.0) 02/20/20 05:53 Seg Neutrophils % 72.5 % (42-78) 02/20/20 05:53 Chloride 101 mmol/L (98-107) 02/20/20 05:53 Carbon Dioxide 26 mmol/L (22-30) 02/20/20 05:53 Anion Gap 5 (5-19) 02/20/20 05:53 Est GFR ( Amer) > 60 (>60) 02/20/20 05:53 Glucose 212 mg/dL (75-110) H 02/20/20 05:53 Lactic Acid 1.2 mmol/L (0.7-2.1) 02/19/20 01:59 Calcium 9.0 mg/dL (8.4-10.2) 02/20/20 05:53 Total Bilirubin 0.4 mg/dL (0.2-1.3) 02/19/20 01:59 AST 15 U/L (14-36) 02/19/20 01:59 Alkaline Phosphatase 86 U/L (38-126) 02/19/20 01:59 C-Reactive Protein 41.3 mg/L (<10.0) H 02/19/20 01:59 Total Protein 6.6 g/dL (6.3-8.2) 02/19/20 01:59 Albumin 3.5 g/dL (3.5-5.0) 02/19/20 01:59 02/19/20 04:02 Blood Blood Culture (PCR) - Final Staphylococcus Species 02/19/20 04:02 Blood Blood Culture - Final Staphylococcus Epidermidis 02/19/20 13:36 Toe - Diabetic Ulcer Gram Stain - Final 02/19/20 13:36 Toe - Diabetic Ulcer Wound Culture - Final Pseudomonas Aeruginosa Klebsiella Oxytoca Skin Roselyn Radiology: Lower Extremity MRI 02/19/20 00:00 IMPRESSION: Acute osteomyelitis of the distal phalanx great toe, with underlying soft tissue ulceration and swelling. Foot X-Ray 02/19/20 01:22 IMPRESSION: No acute bony abnormality. Assessment and Recommendations: Patient evaluated for diabetic foot infection in the setting of obesity, uncontrolled DM and chronic smoking. These factors contribute to poor healing regardless of antibiotic therapy and I&D. She needed toe amputation per surgery in order to really achieve source control. She refused to this, so will try antibiotics. Pseudomonas aeruginosa and Klebsiella were isolated, these are susceptible to fluoroquinolones. ciprofloxacin 750 mg po bid + metronidazole 500 mg po bid recommended for 6 weeks. Please monitor CBC, CMP, CRP weekly. EKG for QTc baseline. She should avoid any multivitamins, and supplements that include divalent cations that can affect cipro absorption. She should also be aware of risks of tendon rupture, aneurysms and C diff with FQs. Should continue local wound care and follow up with podiatry. EOT 04/01/2020. Please call back if any questions. Ashley Rojas MD [facility] [phone]
== END 2020-02-22 13:07 | disposition home health service (06) | DRG 623 ==
LOC: ER 23:46 → EH 02-19 06:45 → 4N 02-19 07:47 → OBSVTOIN 02-19 11:49
PROVIDERS: ADMIT Student in an Organized Health Care Education/Training Program; ATTEND Internal Medicine
PROC: 0JBR0ZZ Excision of Left Foot Subcutaneous Tissue and Fascia, Open Approach (ICD-10-PCS; principal; 2020-02-19)
DX: E11.621 Type 2 diabetes mellitus with foot ulcer (principal); L03.116 Cellulitis of left lower limb; Z68.42 Body mass index [BMI] 45.0-49.9, adult; L97.525 Non-pressure chronic ulcer of other part of left foot with muscle involvement without evidence of necrosis; M86.172 Other acute osteomyelitis, left ankle and foot; E11.69 Type 2 diabetes mellitus with other specified complication; E11.65 Type 2 diabetes mellitus with hyperglycemia; F32.9 Major depressive disorder, single episode, unspecified; F43.10 Post-traumatic stress disorder, unspecified; E66.01 Morbid (severe) obesity due to excess calories; F17.210 Nicotine dependence, cigarettes, uncomplicated; Z53.20 Procedure and treatment not carried out because of patient's decision for unspecified reasons; B96.1 Klebsiella pneumoniae [K. pneumoniae] as the cause of diseases classified elsewhere; B96.5 Pseudomonas (aeruginosa) (mallei) (pseudomallei) as the cause of diseases classified elsewhere; Z20.828 Contact with and (suspected) exposure to other viral communicable diseases; Z71.6 Tobacco abuse counseling; Z88.8 Allergy status to other drugs, medicaments and biological substances; Z79.4 Long term (current) use of insulin; Z79.899 Other long term (current) drug therapy; Z90.710 Acquired absence of both cervix and uterus
CPT/HCPCS: 36415; 80048; 80053; 80202; 82962; 83036; 83605; 85025; 85652; 86140; 87040; 87070; 87077; 87150; 87186; 87205; 87324; 87449; 96365; 99285; 0241U; C9803; J0692; J1650; J1815; J3370; J3490; J7060

== ENCOUNTER → 2020-03-17 | Outpatient (CLI) | payer MEDICAID ==
--- NOTE | 2020-03-17 16:14 | RADIOLOGY REPORT (SQ) ---
EXAM DESCRIPTION: FOOT LEFT COMPLETE IMAGES COMPLETED DATE/TIME: 03/17/2020 4:05 pm REASON FOR STUDY: (J93.9)PNEUMOTHORAX, UNSPECIFIED(L97.524)NON-PRS CHRONIC ULCER OTH PRT LEFT L97.52 4 NON-PRS CHRONIC ULCER OTH PRT LEFT FOOT W NECROSIS O J93.9 PNEUMOTHORAX, UNSPECIFIED COMPARISON: 02/19/2020 NUMBER OF VIEWS: Three views. TECHNIQUE: AP, lateral and oblique without weight bearing radiographic images acquired of the left f oot. LIMITATIONS: None. FINDINGS: MINERALIZATION: Osteopenia. BONES: No acute fracture or dislocation. No worrisome bone lesions. No significant osteophytes. JOINTS: No erosions. No elizabeth-articular osteopenia. No chondrocalcinosis. SOFT TISSUES: No swelling. No calcifications. OTHER: No other significant finding. IMPRESSION: No evidence of osteomyelitis. TECHNICAL DOCUMENTATION: JOB ID: [id number] 2010 [employer]- All Rights Reserved Reading location - IP/workstation name: [email or web address]
--- NOTE | 2020-03-17 16:15 | RADIOLOGY REPORT (SQ) ---
EXAM DESCRIPTION: CHEST 2 VIEWS IMAGES COMPLETED DATE/TIME: 03/17/2020 4:05 pm REASON FOR STUDY: (J93.9)PNEUMOTHORAX, UNSPECIFIED(L97.524)NON-PRS CHRONIC ULCER OTH PRT LEFT COMPARISON: 02/15/2020 TECHNIQUE: Frontal and lateral radiographic views of the chest acquired. NUMBER OF VIEWS: Two view. LIMITATIONS: None. FINDINGS: LUNGS AND PLEURA: No opacities, masses or pneumothorax. No pleural effusion. MEDIASTINUM AND HILAR STRUCTURES: No masses or contour abnormalities. HEART AND VASCULAR STRUCTURES: Heart normal size. No evidence for failure. BONES: No acute findings. HARDWARE: None in the chest. OTHER: No other significant finding. IMPRESSION: NO SIGNIFICANT RADIOGRAPHIC FINDING IN THE CHEST. TECHNICAL DOCUMENTATION: JOB ID: [id number] [employer]- All Rights Reserved Reading location - IP/workstation name: [email or web address]
[2020-03-17 16:38] LABS: ABSOLUTE EOSINOPHILS # (AUTO) 0.2 10^3/uL (0.0-0.6); ABSOLUTE LYMPHOCYTES (AUTO) 1.8 10^3/uL (0.5-4.7); ABSOLUTE MONOCYTES (AUTO) 0.4 10^3/uL (0.1-1.4); ABSOLUTE NEUT (AUTO) 2.6 10^3/uL (1.7-8.2); BASOPHILS % (AUTO) 0.7 % (0-2); EOSINOPHILS % (AUTO) 3.7 % (0-6); HEMATOCRIT 33.8 % (36.0-47.0); HEMOGLOBIN 11.5 g/dL (12.0-15.5); LYMPHOCYTES % (AUTO) 35.1 % (13-45); MEAN CORPUSCULAR HEMOGLOBIN 29.5 pg (27.0-33.4); MEAN CORPUSCULAR HGB CONC 33.9 g/dL (32.0-36.0); MEAN CORPUSCULAR VOLUME 87 fl (80-97); MONOCYTES % (AUTO) 8.7 % (3-13); PLATELET COUNT 188 10^3/uL (150-450); RED BLOOD COUNT 3.89 10^6/uL (3.72-5.28); RED CELL DISTRIBUTION WIDTH 14.4 % (11.5-14.0); SEGMENTED NEUTROPHILS % (AUTO) 51.8 % (42-78); TOTAL CELLS COUNTED % (AUTO) 100 %
[2020-03-17 17:05] LABS: ALBUMIN 3.5 g/dL (3.5-5.0); ALKALINE PHOSPHATASE 60 U/L (38-126); ANION GAP 2 (5-19); ASPARTATE AMINO TRANSFERASE 18 U/L (14-36); BILIRUBIN,DIRECT 0.2 mg/dL (0.0-0.4); BILIRUBIN,TOTAL 0.3 mg/dL (0.2-1.3); BLOOD UREA NITROGEN 15 mg/dL (7-20); C-REACTIVE PROTEIN < 5.0 mg/L (<10.0); CALCIUM 9.5 mg/dL (8.4-10.2); CARBON DIOXIDE 30 mmol/L (22-30); CHLORIDE 106 mmol/L (98-107); GLUCOSE 256 mg/dL (75-110); POTASSIUM 4.8 mmol/L (3.6-5.0); TOTAL PROTEIN 6.8 g/dL (6.3-8.2)
[2020-03-17 17:25] LABS: ERYTHROCYTE SEDIMENTATION RATE 47 mm/hr (0-20)
== END ==
LOC: RAD 15:41
PROVIDERS: ATTEND Nurse Practitioner Family
DX: E11.621 Type 2 diabetes mellitus with foot ulcer (principal); L97.524 Non-pressure chronic ulcer of other part of left foot with necrosis of bone; J93.9 Pneumothorax, unspecified
CPT/HCPCS: 36415; 71046; 80053; 85025; 85652; 86140

== ENCOUNTER → 2020-03-23 | Outpatient (CLI) | payer MEDICAID ==
--- NOTE | 2020-03-23 16:49 | RADIOLOGY REPORT (SQ) ---
EXAM DESCRIPTION: PHYSIO ARTERIAL LTD IMAGES COMPLETED DATE/TIME: 03/23/2020 3:22 pm REASON FOR STUDY: LT FOOT ULCER L97.524 NON-PRS CHRONIC ULCER OTH PRT LEFT FOOT W NECROSIS O COMPARISON: None. TECHNIQUE: Brachial blood pressure obtained. Pressures obtained of the peripheral vessels at the lev el of the ankle. Ankle brachial indices calculated. LIMITATIONS: None. FINDINGS: RIGHT KJ: Normal, greater than 1.0. LEFT KJ: Normal, greater than 1.0. IMPRESSION: NORMAL BILATERAL ABIS. COMMENT: [facility] NORMAL: Greater than 1.0 MINIMAL DISEASE: 0.9 to 1.0 CLAUDICATION: 0.5 to 0.9 SEVERE ARTERIAL DISEASE: Less than 0.5 [facility] NORMAL: Greater than 1.0 (1.2 If Heavy Calcifications) NORMAL TO MILD ISCHEMIA: 0.8 to 1.0 MODERATE ISCHEMIA: 0.4 to 0.8 SEVERE ISCHEMIA: Less than 0.4 TECHNICAL DOCUMENTATION: JOB ID: [id number] 2010 [employer]- All Rights Reserved Reading location - IP/workstation name: [email or web address]
== END ==
LOC: SP 14:02
PROVIDERS: ATTEND Nurse Practitioner Family
DX: L97.524 Non-pressure chronic ulcer of other part of left foot with necrosis of bone (principal)
CPT/HCPCS: 93922